=== PATIENT | female | born 1965 | race African-American/Black ===

== ENCOUNTER 2024-04-22 10:25 | Inpatient (IN) | payer OTHER, SELFPAY ==
--- NOTE | ~2024-04-22 | XR_ITS ---
MODIFIED ESOPHAGRAM HISTORY: Impaired swallow TECHNIQUE: Modified barium esophagram was performed on 04/24/2024. I administered fluoroscopy and perf ormed the exam with speech pathologist. Patient was seated for lateral fluoroscopic imaging for lorenzo stion of thin liquids, pudding, solids and quantified amounts, followed by thin liquids in uncontroll ed amounts. This was recorded on tape. A single fluoroscopic spot image was also recorded. The DAP fo r this procedure was 1 Gycm2. The amount of fluoroscopy time used during this procedure was 1.9 minut es. FINDINGS: Oral stage: Adequate function. Pharyngeal stage: Reduced laryngeal elevation and adduction. Reduced pharyngeal squeeze. There is kade lecular, piriform sinus and pharyngeal wall residue. There is irregular posterior wall thickening the pharynx below the level of the epiglottis likely related to reported history of throat cancer. There is recurrent laryngeal penetration and aspiration significant amounts of thin liquid and pudding con sistencies during both during and following the swallow. Cervical/esophageal stage: Adequate function. IMPRESSION: Significant recurrent laryngeal aspiration both during and following the swallow with thi n liquid and pudding consistencies. Please correlate with speech pathologist findings and specific f eeding recommendations. Reviewed, dictated and finalized at location A. NER OPERATOR IMPRESSION: Significant recurrent laryngeal aspiration both during and followin g the swallow with thin liquid and pudding consistencies. Please correlate wit h speech pathologist findings and specific feeding recommendations.
--- NOTE | ~2024-04-22 | CT_ITS ---
EXAMINATION: CT soft tissue neck chest w DATE: 04/24/2024 16:39 INDICATION: Shortness of breath. Neck swelling. TECHNIQUE: Computed tomography (CT) of the neck and chest was performed with 75 mL Omnipaque-350 intr avenous contrast. Automated exposure control and iterative reconstruction technique were employed. Th e dose-length product was 393.02 mGy-cm. COMPARISON: 04/22/2024 FINDINGS: Neck: Prominent soft tissue swelling at the left side of the neck surrounding a loculated gas and fluid col lection which is increased in size since the prior study currently measuring 2.9 x 1.9 x 3.2 cm versu s previously measuring 1.8 x 1.7 x 2.3 cm. There is surrounding subcutaneous edema. There is a mass, difficult to distinguish from the surrounding edematous soft tissues at the left side of the pharynx which exerts mass effect upon the left aryepiglottic fold and the left side of the glottis. There is also thickening of the retropharyngeal soft tissues findings are consistent with reported history of neck cancer. There is also asymmetric wall thickening along the left side of the cervical esophagus a lso suspicious for malignant infiltration. There are multiple enlarged cervical lymph nodes primarily along the bilateral posterior cervical triangles and at the upper left jugular chain. Orbits are nor mal. Paranasal sinuses are clear. Bilateral parotid and submandibular glands are normal and symmetric . Mastoid air cells and middle ear cavities are clear. Severe cervical spondylosis. Chest: Moderate emphysema. Patchy groundglass opacities in the bilateral lower lobes with posterior medial p redominance in the posterior right middle lobe. Or dense consolidation at the posterior medial left l ower lobe. Given the appearance and distribution is most suspicious for aspiration which was also obs erved on a modified swallow study from earlier in the day. There is some bubbly mucus/debris in the r ight lower lobar bronchus as well as in the posterior basilar segmental bronchi of the bilateral lowe r lobes. No pulmonary edema or pleural effusion. No pulmonary nodules suspicious for primary or metas tatic disease. No pathologically enlarged thoracic lymphadenopathy. Poorly defined approximately 2.7 cm hypoenhancing lesion in segment 3 of the liver suspicious for metastatic disease. Previous studies gastrostomy tube bulb in expected position within the body the stomach. Visualized upper abdomen is otherwise unremarkable. Diffuse sclerosis throughout the T12 vertebral body suspicious for metastatic disease. IMPRESSION: 1. Mass at the left side of the pharynx with soft tissue thickening the retropharyngeal soft tissues extending caudally along the left side of the esophagus which be consistent with reported primary nec k cancer. 2. Interval increase in size of a now 2.9 x 1.9 x 3.2 cm gas and fluid containing lesion in the subcu taneous tissues overlying the left side of the pharynx suspicious for secondary abscess formation pot ential with fistulous indication the pharynx. Alternatively this could represent secondarily suppurat nena/necrotic metastatic lymph node. 3. Multiple enlarged bilateral cervical lymph nodes along with a 2.7 cm mass in the left hepatic lobe and sclerotic T12 vertebral body, all suspicious for metastatic disease. 4. Patchy airspace opacities in the dependent lower lobes and right middle lobe suspicious for aspira tion pneumonia. Reviewed, dictated and finalized at location A. UPS ASSEMBLER IMPRESSION: 1. Mass at the left side of the pharynx with soft tissue thickening the retroph aryngeal soft tissues extending caudally along the left side of the esophagus w hich be consistent with reported primary neck cancer. 2. Interval increase in size of a now 2.9 x 1.9 x 3.2 cm gas and fluid containi ng lesion in the subcutaneous tissues overlying the left side of the pharynx garcia spicious for secondary abscess formation potential with fistulous indication th e pharynx. Alternatively this could represent secondarily suppurative/necrotic metastatic lymph node. 3. Multiple enlarged bilateral cervical lymph nodes along with a 2.7 cm mass in the left hepatic lobe and sclerotic T12 vertebral body, all suspicious for met astatic disease. 4. Patchy airspace opacities in the dependent lower lobes and right middle lobe suspicious for aspiration pneumonia.
--- NOTE | ~2024-04-22 | XR_ITS ---
Portable chest x-ray Comparison: None Clinical History: Cough Findings: Lungs are clear, without focal consolidation or pleural effusion. Possible COPD. Cardiome diastinal silhouette is unremarkable. Bones and soft tissues are unremarkable. Impression: Clear lungs. Possible COPD. Reviewed, dictated and finalized at location . E BOARDER Impression: Clear lungs. Possible COPD.
--- NOTE | ~2024-04-22 | CT_ITS ---
CT soft tissue neck w con Ordering provider: Gilberto Contreras MD History: 58 years Female with . Worsening left-sided throat swelling and difficulty swallowing, perso nal history of throat cancer . Comparison: None. Technique: CT soft tissues neck was performed with contrast. . The dose-length product was 210.16 mGy -cm. Findings: LOWER HEAD: The visualized brain parenchyma, optic globes/orbits and mastoids are normal. The visua lized paranasal sinuses are well aerated. SALIVARY GLANDS: Unremarkable. THYROID: Unremarkable. SUPRAHYOID DEEP SPACES: Symmetric CAROTID ARTERIES: Patent JUGULAR VEINS: Patent TONSILS: Unremarkable ORAL CAVITY: Partially obscured by dental amalgam but unremarkable as visualized. PHARYNX, LARYNX AND TRACHEA: Marked asymmetry within the subglottic larynx, with limited evaluation secondary to the lack of soft tissue fat. The administration of intravenous contrast is helpful, as it designates a left-sided rim-enhancing fl uid collection adjacent to the vocal cords measuring 18 x 17 x 19 mm, for which an abscess is suspect ed. Alternatively, this may represent a necrotic lymph node. A punctate focus of air is identified centrally within the caudal-most portion of this fluid collecti on. SUPERFICIAL SOFT TISSUES: As above THORACIC INLET/VISUALIZED UPPER CHEST: Normal. SKELETAL: Age advanced degenerative changes. IMPRESSION: Asymmetry within the subglottic larynx, to the left of midline with a 19 mm rim-enhancing fluid colle ction for which an abscess (versus a necrotic lymph node) is suspected. Reviewed, dictated and finalized at location A. FORGER HELPER IMPRESSION: Asymmetry within the subglottic larynx, to the left of midline with a 19 mm rim -enhancing fluid collection for which an abscess (versus a necrotic lymph node) is suspected.
--- OUTSIDE RECORDS SUMMARY | 2024-04-22 10:27 | XMS_ITS | Clinical Summary ---
Author Organization [facility] Address [address] [place] [address] Phone Care Team Providers Care Logistics/Shipper Name Role Phone Gilles Durant MD Primary Care Provider [phone] Allergies No known active allergies Medications nicotine (NICODERM CQ) 21 mg/24 hr patch Starting 02/14: Apply 1 Patch to skin as directed daily. 30 Patch 02/14/2024 3:40 PM PLANNING AIDE 02/15/20 24 Active sennosides-doc usate sodium (SENNA-S) 8.6-50 mg tablet Take 2 Tablets by mouth 2 times daily. 90 Tablet 02/14/2024 3:40 PM PLANNING AIDE 02/14/20 24 Active mirtazapine (REMERON SolTab) 15 mg Tablet, Rapid Dissolve Take 1 Tablet (15 mg) by mouth daily at bedtime. 30 Tablet 5 03/09/2024 6:21 PM PLANNING AIDE 03/09/19 25 Active oxyCODONE-acet aminophen (PERCOCET) 10-325 mg TabletIndicati ons:Pharyngeal carcinoma, squamous cell (CMS/HCC) Take 1 Tablet by mouth every 6 hours as needed for Pain. Max Daily Amount: 4 Tablets 20 Tablet 04/17/2024 6:02 PM PLANNING AIDE 04/17/19 25 Active oxyCODONE-acet aminophen (PERCOCET) 10-325 mg TabletIndicati ons:Pharyngeal carcinoma, squamous cell (CMS/HCC) Take 1 Tablet by mouth every 4 hours as needed for Pain. Max Daily Amount: 6 Tablets 360 Tablet 03/09/2024 6:21 PM PLANNING AIDE 03/09/19 25 025 Discontinued fentaNYL (DURAGESIC) 25 mcg/hr patchIndicatio ns:Pharyngeal carcinoma, squamous cell (CMS/HCC) Starting 03/12/24: Apply 1 Patch topically to skin as directed every third day. 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 04/16/2024 Neutrophilia 04/16/2024 Normocytic anemia 04/16/2024 Thrombocytosis 04/16/2024 Oral phase dysphagia 04/16/2024 Drug-induced constipation 04/16/2024 Substance use disorder 03/05/2024 MDD (major depressive disord er), recurrent episode, moderate 03/03/2024 Other insomnia 03/03/2024 Pharyngeal carcinoma, squamous cell 03/02/2024 Oropharyngeal dysphagia 02/13/2024 Cancer associated pain 02/13/2024 Physical debility 02/13/2024 Palliative care by specialist 02/13/2024 Advance care planning 02/13/2024 Protein-calorie malnutrition, severe 02/08/2024 Head and neck malignancy 02/07/2024 Continuous dependence on cigarette smoking 02/06 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/2024 Resolved Problems Problem Noted Date Diagnosed Date Resolved Date RSV (acute bronchiolitis due to respiratory syncytial virus) 02/13/2024 03/02/2024 Iron deficiency anemia 02/07/202403/02 Encounters Date Type Department Care Team Description 04/19/2024 Chart Note [facility] Oncology Patient Navigation [address] [place] [address] Kaya Santiago, RN Nurse Navigation (Follow up) 04/17/2024 External Device Data ST[facility] ABSTRACTION Provider, Abstract 04/17/2024 External Device Data [facility] ABSTRACTION Provider, Abstract 04/17/2024 External Device Data [facility] ABSTRACTION Provider, Abstract 04/15/2024 11:49 AM PLANNING AIDE - 04/17/2024 6:18 PM PLANNING AIDE Hospital Encounter [facility] Oncology [address] [place] [address] Yannick Aponte MD Rose, Evan James, DO Pettis, Matthew, MD Burke, Matthew Frederic, MD Habtu, Ariana Judge, Hypopharyngeal mass Discharge Disposition: Home or Self Care 04/15/2024 Travel 04/13/2024 Chart Note [facility] Patient Navigation [address] [place] [address] Kaya Santiago, RN Nurse Navigation (Follow up) 04/10/2024 External Device Data STL ABSTRACTION Provider, Abstract 04/04/2024 Chart Note [facility] Patient Navigation [address] [place] [address] Kaya Santiago, RN Nurse Navigation (Follow up) 04/03/2024 External Device Data [facility] ABSTRACTION Provider, Abstract 04/03/2024 External Device Data [facility] ABSTRACTION Provider, Abstract 04/03/2024 Chart Note [facility] Patient Navigation [address] [place] [address] Kaya Santiago, RN Nurse Navigation (Follow up) 03/28/2024 External Device Data [facility] ABSTRACTION Provider, Abstract 03/28/2024 External Device Data [facility] ABSTRACTION Provider, Abstract 03/27/2024 Chart Note [facility] Patient Navigation [address] [place] [address] Kaya Santiago, RN Nurse Navigation (Follow up) 03/26/2024 Chart Note [facility] Patient Navigation [address] [place] [address] Kaya Santiago, RN 03/26/2024 Telephone [facility] EAR, NOSE AND THROAT [facility] [address] [facility] [address] [place] [address] Kailey Malin, RN Follow Up 03/26/2024 Telephone [facility] [address] [place] [address] DME- supplement order 03/26/2024 Chart Note [facility] Patient Navigation [address] [place] [address] Kaya Santiago, RN Nurse Navigation (Follow up) 03/22/2024 Chart Note [facility] Patient Navigation [address] [place] [address] Kaya Santiago, RN Nurse Navigation (Follow up) 03/21/2024 External Device Data ST[facility] ABSTRACTION Provider, Abstract 03/21/2024 Chart Note [facility] Patient Navigation [address] [place] [address] Kaya Santiago, RN Nurse Navigation (Follow up) 03/20/2024 Chart Note [facility] Oncology Patient Navigation [address] [place] [address] Kaya Santiago, RN Nurse Navigation (Follow up) 03/19/2024 Chart Note [facility] Patient Navigation [address] [place] [address] Kaya Santiago, RN Nurse Navigation (Follow up) 03/16/2024 Chart Note [facility] Patient Navigation [address] [place] [address] Kaya Santiago, RN Nurse Navigation (Follow up) 03/15/2024 Chart Note [facility] Oncology Patient Navigation [address] [place] [address] Kaya Santiago, RN Nurse Navigation (Follow up) 03/14/2024 Chart Note [facility] Oncology Patient Navigation [address] [place] [address] Kaya Santiago, RN Nurse Navigation (Follow up) 03/06/2024 External Device Data [facility] ABSTRACTION Provider, Abstract 03/05/2024 11:41 AM PLANNING AIDE Anesthesia Event [facility] Interventional Radiology S [facility] [address] [place] [address] Adriano Silva MD Malatkar, Rushali, AA-C 03/05/2024 Chart Note [facility] Oncology Patient Navigation [address] [place] [address] Kaya Santiago, RN Nurse Navigation (Follow up) 03/02/2024 3:53 PM PLANNING AIDE - 03/09/2024 6:06 PM PLANNING AIDE Hospital Encounter [facility] Oncology [address] [place] [address] Chastity Novak DO Kroeger, Ryan L, Randy Diallo MD Padgett, Sabrina, MD Pharyngeal carcinoma, squamous cell (CMS/HCC) Discharge Disposition: Home or Self Care 03/02/2024 Travel 02/28/2024 Chart Note [facility] Oncology Patient Navigation [address] [place] [address] Kaya Santiago, RN Nurse Navigation (Follow up) 02/27/2024 Chart Note [facility] Oncology Patient Navigation [address] [place] [address] Kaya Santiago, RN Nurse Navigation (Follow up ) 02/27/2024 Chart Note [facility] Oncology Patient Navigation [address] [place] [address] Kaya Santiago, RN Nurse Navigation 02/24/2024 Telephone [facility], [facility]SE [facility] [place] [address] [address] Kailey Malin, JOSÉ Follow Up; Needs Appointment 02/24/2024 Orders Only [facility] [place] [address] [address] Rhett Rivera MD 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) 02/24/2024 Telephone [facility]SE [facility] [place] [address] [facility] [address] [place] [address] Rhett Rivera MD Care Plan 02/22/2024 Telephone [facility]SE [facility] [place] [address] [facility] [place] [address] [place] [address] Kailey Malin, RN Needs Appointment 02/15/2024 Telephone [facility]AR, [facility]SE [facility] [place] [address] [facility] [place] [address] [place] [address] Kailey Malin, RN Needs Appointment 02/14/2024 External Device Data [facility] ABSTRACTION Provider, Abstract 02/10/2024 1:30 PM PLANNING AIDE Anesthesia Event [facility] Operating Room [address] [place] [address] Mica Oliveira MD Yoder, Benjamin, AA-C 02/10/2024 1:29 PM PLANNING AIDE - 02/10/2024 3:12 PM PLANNING AIDE Surgery [facility] Operating Room [address] [place] [address] Rhett Rivera MD LARYNGOSCOPY MICRO 02/07/2024 10:25 PM PLANNING AIDE - 02/14/2024 7:00 PM PLANNING AIDE Hospital Encounter [facility] Oncology [address] [place] [address] Regina Sullivan MD Weitzel, Laura Jean, MD Yedla, Vanaja, MD Head and neck malignancy (CMS/HCC) Discharge Disposition: Home or Self Care 02/07/2024 Travel from Last 3 Months Social History Tobacco Use Types Packs/Day Years Used Date Smoking Tobacco: Every Day Cigarettes Tobacco Cessation:Ready to Q uit: Not Asked; Counseling Given: Not Answered Alcohol Use Standard Drinks/Week Comments Yes 1 (1 standard drink = 0.6 oz pure alcohol) Pt states drank 1 beer all night 4 days ago, I rarely drink Feeling Safe Answer Date Recorded Are you in a relationship wi th someone who hurts you emotionally and/or physically? No 04/15/2024 Food Insecurity Answer Date Recorded Social/Environmental Concerns No concerns Transportation Needs Answer Date Record ed Social/Environmental Concerns Housing instabilit y 04/15/2024 Housing Stability Answer Date Recorded Social/Environmental Concerns Housing instabilit y 04/15/2024 Utility Needs Answer Date Recorded Social/Environmental Concerns No concerns Comments Unknown Sex and Gender Information Value Date Recorded Sex Assigned at Not on file Legal Sex Female 2:37 PM PLANNING AIDE Gender Identity Not on file Sexual Orientation Not on file Last Filed Vital Signs Vital Sign Reading Time Taken Comments Blood Pressure 100/68 04/17/2024 4:27 AM PLANNING AIDE Pulse 80 04/17/2024 4:27 AM PLANNING AIDE Temperature 36.6 C (97.9 F) 04/17/2024 4:27 AM PLANNING AIDE Respiratory Rate 18 04/16/2024 8:46 PM PLANNING AIDE Oxygen Saturation 99% 04/17/2024 4:30 AM PLANNING AIDE Inhaled Oxygen Concentration - - Weight 41.9 kg (92 lb 4.8 oz) 04/15/2024 5:27 PM PLANNING AIDE Height 170.2 cm (5' 7 ) 04/15/2024 5:27 PM PLANNING AIDE Body Mass Index 14.46 04/15/2024 5:27 PM PLANNING AIDE Plan of Treatment Health Maintenance Due Date Last Done Comments DTAP/TDAP/TD VACCINES (1 - Tdap) 1985 HEPATITIS B VACCINES (1 of 3 - 19+ 3-dose series) 11/05 ZOSTER VACCINE (1 of 2) 1985 CERVICAL CANCER SCREENING 1996 BREAST CANCER SCREENING 2006 COLORECTAL SCREENING 11/18/2011 Colorectal Cancer Screening 11/18/2011 FIT-DNA Q 3 years 11/18/2011 FIT/FOBT Q 1 year 11/18/2011 Flex Sig/CT Colonography Q 5 years 11/18/2011 INFLUENZA VACCINE (#1) 2023 Procedures Procedure Name Priority Date/Time Associated Diagnosis Comments XR VIDEO SWALLOW W SPEECH Routine 04/17/2024 2:52 PM PLANNING AIDE BASIC METABOLIC PANEL Routine 04/17/2024 3:27 AM PLANNING AIDE XR CHEST PA OR AP 1 VW Routine 1:45 PM PLANNING AIDE BASIC METABOLIC PANEL Routine 04/16/2024 5:53 AM PLANNING AIDE CBC WITH DIFFERENTIAL Routine 04/16/2024 5:53 AM PLANNING AIDE RAPID STREP SCREEN WITH REFLEX CULTURE Stat 04/15/2024 2:[address] SOFT TISSUE NECK W CONTRAST Stat 04/15/2024 1:42 PM PLANNING AIDE RESPIRATORY PATHOGEN PCR PANEL Stat 04/15/2024 12:24 PM PLANNING AIDE POC CREATININE Stat 04/15/2024 12:19 PM PLANNING AIDE IRON, TIBC, AND PERCENT SATURATION Stat 04/15/2024 12:07 PM PLANNING AIDE MAGNESIUM LEVEL Stat 04/15/2024 12:07 PM PLANNING AIDE C-REACTIVE PROTEIN Stat 04/15/2024 12 :07 PM PLANNING AIDE COMPREHENSIVE METABOLIC PANEL Stat 04/15/2024 12:07 PM PLANNING AIDE CBC WITH DIFFERENTIAL Stat 04/15/2024 12:07 PM PLANNING AIDE COMPREHENSIVE METABOLIC PANEL Stat 03/09/2024 9:50 AM PLANNING AIDE Oropharyngeal dysphagia PHOSPHORUS Routine 03/09/2024 9:50 AM PLANNING AIDE Oropharyngeal dysphagia MAGNESIUM LEVEL Routine 03/09/2024 9:50 AM PLANNING AIDE Oropharyngeal dysphagia PHOSPHORUS Routine 03/08/2024 4:54 AM PLANNING AIDE Oropharyngeal dysphagia MAGNESIUM LEVEL Routine 03/08/2024 4:54 AM PLANNING AIDE Oropharyngeal dysphagia COMPREHENSIVE METABOLIC PANEL Routine 03/08/2024 4:54 AM PLANNING AIDE Oropharyngeal dysphagia MAGNESIUM LEVEL Routine 03/07/2024 7:21 AM PLANNING AIDE Oropharyngeal dysphagia COMPREHENSIVE METABOLIC PANEL Routine 03/07/2024 7:21 AM PLANNING AIDE Oropharyngeal dysphagia PHOSPHORUS Routine 03/07/2024 7:21 AM PLANNING AIDE Oropharyngeal dysphagia MAGNESIUM LEVEL Routine 03/06/2024 6:50 AM PLANNING AIDE Oropharyngeal dysphagia COMPREHENSIVE METABOLIC PANEL Routine 03/06/2024 6:50 AM PLANNING AIDE Oropharyngeal dysphagia PHOSPHORUS Routine 03/06/2024 6:50 AM PLANNING AIDE Oropharyngeal dysphagia IR TUBE PLACEMENT Routine 03/05/2024 12: 36 PM PLANNING AIDE W[place] ANES INSERT ENDOTRACHEAL AIRWAY Routine 03/05/2024 11:52 AM PLANNING AIDE PHOSPHORUS Routine 03/05/2024 5:54 AM PLANNING AIDE Oropharyngeal dysphagia Hypopharyngeal mass Protein-calorie malnutrition, severe Continuous dependence on cigarette smoking Head and neck malignancy (CMS/HCC) CBC WITHOUT DIFFERENTIAL Routine 03/05/2024 5:54 AM PLANNING AIDE MAGNESIUM LEVEL Routine 03/05/2024 5:54 AM PLANNING AIDE BASIC METABOLIC PANEL Routine 03/05/2024 5:54 AM PLANNING AIDE CBC WITHOUT DIFFERENTIAL Routine 03/04/2024 6:59 AM PLANNING AIDE MAGNESIUM LEVEL Routine 03/04/2024 6:59 AM PLANNING AIDE BASIC METABOLIC PANEL Routine 03/04/2024 6:59 AM PLANNING AIDE PHOSPHORUS Routine 03/03/2024 4:25 AM PLANNING AIDE MAGNESIUM LEVEL Routine 03/03/2024 4:25 AM PLANNING AIDE COMPREHENSIVE METABOLIC PANEL Routine 03/03/2024 4:25 AM PLANNING AIDE CBC WITH DIFFERENTIAL Routine 03/03/2024 4:25 AM PLANNING AIDE PT EVAL AND TREAT Routine 03/02/2024 4:3 8 PM PLANNING AIDE OT EVAL AND TREAT Routine 03/02/2024 4:3 8 PM PLANNING AIDE BASIC METABOLIC PANEL Routine 02/14/2024 12:51 PM PLANNING AIDE CBC WITH DIFFERENTIAL Routine 02/14/2024 12:51 PM PLANNING AIDE POC GLUCOSE Routine 02/14/2024 12:50 PM PLANNING AIDE POC GLUCOSE Routine 02/14/2024 9:22 AM PLANNING AIDE POC GLUCOSE Routine 02/14/2024 4:15 AM PLANNING AIDE POC GLUCOSE Routine 02/14/2024 12:11 AM PLANNING AIDE POC GLUCOSE Routine 02/13/2024 8:28 PM PLANNING AIDE POC GLUCOSE Routine 02/13/2024 5:27 PM PLANNING AIDE POC GLUCOSE Routine 02/13/2024 12:09 PM PLANNING AIDE XR VIDEO SWALLOW W SPEECH Routine 02/13/2024 12:02 PM PLANNING AIDE POC GLUCOSE Routine 02/13/2024 8:49 AM PLANNING AIDE BASIC METABOLIC PANEL Routine 02/13/2024 4:08 AM PLANNING AIDE CBC WITH DIFFERENTIAL Routine 02/13/2024 4:08 AM PLANNING AIDE POC GLUCOSE Routine 02/12/2024 9:17 PM PLANNING AIDE POC GLUCOSE Routine 02/12/2024 4:53 PM PLANNING AIDE POC GLUCOSE Routine 02/12/2024 12:15 PM PLANNING AIDE POC GLUCOSE Routine 02/12/2024 12:14 PM PLANNING AIDE POC GLUCOSE Routine 02/12/2024 3:33 AM PLANNING AIDE POC GLUCOSE Routine 02/12/2024 2:37 AM PLANNING AIDE POC GLUCOSE Routine 02/12/2024 2:09 AM PLANNING AIDE POC GLUCOSE Routine 02/12/2024 1:40 AM PLANNING AIDE POC GLUCOSE Routine 02/12/2024 1:09 AM PLANNING AIDE POC GLUCOSE Routine 02/12/2024 12:46 AM PLANNING AIDE POC GLUCOSE Routine 02/12/2024 12:43 AM PLANNING AIDE POC GLUCOSE Routine 02/11/2024 8:04 PM PLANNING AIDE POC GLUCOSE Routine 02/11/2024 3:59 PM PLANNING AIDE POC GLUCOSE Routine 02/11/2024 11:31 AM PLANNING AIDE POC GLUCOSE Routine 02/11/2024 10:14 AM PLANNING AIDE POC GLUCOSE Routine 02/11/2024 5:17 AM PLANNING AIDE BASIC METABOLIC PANEL Routine 02/11/2024 2:30 AM PLANNING AIDE CBC WITH DIFFERENTIAL Routine 02/11/2024 2:30 AM PLANNING AIDE POC GLUCOSE Routine 02/11/2024 12:10 AM PLANNING AIDE POC GLUCOSE Routine 02/10/2024 8:15 PM PLANNING AIDE OT EVAL AND TREAT Routine 02/10/2024 4:3 4 PM PLANNING AIDE PT EVAL AND TREAT Routine 02/10/2024 4:3 4 PM PLANNING AIDE POC GLUCOSE Routine 02/10/2024 3:52 PM PLANNING AIDE PATHOLOGY Pathology 02/10/2024 1:54 PM PLANNING AIDE Hypopharyngeal mass WY ANES INSERT ENDOTRACHEAL AIRWAY Routine 02/10/2024 1:39 PM PLANNING AIDE LARYNGOSCOPY MICRO 02/10/2024 1: 29 PM PLANNING AIDE Hypopharyngeal mass POC GLUCOSE Routine 02/10/2024 9:59 AM PLANNING AIDE PHOSPHORUS Routine 02/10/2024 4:18 AM PLANNING AIDE MAGNESIUM LEVEL Routine 02/10/2024 4:18 AM PLANNING AIDE COMPREHENSIVE METABOLIC PANEL Routine 02/10/2024 4:18 AM PLANNING AIDE CBC WITH DIFFERENTIAL Routine 02/10/2024 4:18 AM PLANNING AIDE POC GLUCOSE Routine 02/10/2024 1:[address] ABDOMEN WO CONTRAST Routine 11:29 PM PLANNING AIDE CBC WITH DIFFERENTIAL Stat 02/09/2024 8:50 PM PLANNING AIDE POC GLUCOSE Routine 02/09/2024 6:46 PM PLANNING AIDE PHOSPHORUS Stat 02/09/2024 4:33 PM PLANNING AIDE MAGNESIUM LEVEL Stat 02/09/2024 4:33 PM PLANNING AIDE COMPREHENSIVE METABOLIC PANEL Stat 02/09/2024 4:33 PM PLANNING AIDE URINALYSIS W/REFLEX MICROSCOPIC Routine 02/08/2024 10:07 PM PLANNING AIDE CTA HEAD AND NECK W AND/OR WO CONTRAST Stat 02/08/2024 4:[address] CHEST W CONTRAST Stat 02/08/2024 4 :53 PM PLANNING AIDE XR ABDOMEN FOR FEEDING TUBE 1 VW Stat 02/08/2024 2:24 PM PLANNING AIDE RESPIRATORY PATHOGEN PCR PANEL Routine 02/08/2024 12:01 PM PLANNING AIDE CEA Routine 02/08/2024 1:49 AM PLANNING AIDE COMPREHENSIVE METABOLIC PANEL Routine 02/08/2024 1:49 AM PLANNING AIDE MAGNESIUM LEVEL Routine 02/08/2024 1:49 AM PLANNING AIDE CBC WITH DIFFERENTIAL Routine 02/08/2024 1:49 AM PLANNING AIDE from Last 3 Months Results * XR VIDEO SWALLOW W SPEECH (04/17/2024 2:52 PM PLANNING AIDE) Only the most recent of2 resultswithin the time period is included. Anatomical Region Laterality Modality Chest Computed Radiogr aphy 04/17/2024 2:54 PM PLANNING AIDE Impressions 04/17/2024 2:57 PM PLANNING AIDE TECHNIQUE/IMPRESSION: Fluoroscopy was provided for an examination performed by speech and language pathology. Please see their separate report for further characterization of findings. Aspiration and penetration with all ingested liquids and solids. DICTATION LOCATION: Location 1 - [facility] Narrative 04/17/2024 2:57 PM PLANNING AIDE EXAMINATION: MODIFIED BARIUM SWALLOW DATE: 04/17/2024 2:52 PM HISTORY: Aspiration, Difficulty Swallowing COMPARISON: None Fluoroscopy time: 2.2 minutes. REFERENCE AIR KERMA DOSE: 5.257 mGy INCIDENTAL FINDINGS: None. Procedure Note Pancho Welch MD - 04/17/2024 EXAMINATION: MODIFIED BARIUM SWALLOW DATE: 04/17/2024 2:52 PM HISTORY: Aspiration, Difficulty Swallowing COMPARISON: None Fluoroscopy time: 2.2 minutes. REFERENCE AIR KERMA DOSE: 5.257 mGy INCIDENTAL FINDINGS: None. TECHNIQUE/IMPRESSION: Fluoroscopy was provided for an examination performed by speech and language pathology. Please see their separate report for further characterization of findings. Aspiration and penetration with all ingested liquids and solids. DICTATION LOCATION: Location 1 - [facility] Adriano Jaime MD DIAGNOSTIC IMAGING ORD ERABLES Final Result * (ABNORMAL) BASIC METABOLIC PANEL (04/17/2024 3:27 AM PLANNING AIDE) Only the most recent of7 resultswithin the time period is included. SODIUM 139 136 - 145 mmol/L 04/17/2024 4:31 AM PLANNING AIDE [employer] LABORATORY SERVICES - . [facility] POTASSIUM 3.9 3.5 - 5.0 mmol/L 04/17/2024 4:31 AM PLANNING AIDE [employer] LABORATORY SERVICES - [facility] CHLORIDE 103 98 - 107 mmol/L 04/17/2024 4:31 AM PLANNING AIDE [employer] LABORATORY SERVICES - [facility]. [facility] CO2 26 22 - 29 mmol/L 04/17/2024 4:31 AM PLANNING AIDE [employer] LABORATORY SERVICES - . [facility] CALCIUM 8.9 8.6 - 10.2 mg/dL 04/17/2024 4:31 AM PLANNING AIDE [employer] LABORATORY SERVICES - . [place] BUN 21(H) 6 - 20 mg/dL 04/17/2024 4:31 AM [facility] CREATININE 0.51 0.51 - 0.95 mg/dL 04/17/2024 4:31 AM [facility] GLUCOSE 125(H) 74 - 99 mg/dL 04/17/2024 4:31 AM [facility] GFR >60 >=60 mL/min/1.7 3 sq meter 04/17/2024 4:31 AM [facility] Comment:eGFR calculated with 2020 CKD-EPI equation. Vegetarian diet, extremely high or low muscle mass, and may affect results. Cystatin C with Glomerular Filtration Rate is a suitable alternative for these patients. ANION GAP 10 8 - 16 mmol/L 04/17/2024 4:31 AM [facility] Blood Venipuncture / Unknown 04/17/2024 3:27 AM PLANNING AIDE 04/17/2024 3:48 AM PLANNING AIDE [employer] COMPENSATION AND BENEFITS ANALYST CHEMISTRY ORDERABLES Final Resu lt [facility] CLIA# [id number] [address] [place] [address] * XR CHEST PA OR AP 1 VW (04/16/2024 1:45 PM PLANNING AIDE) Anatomical Region Laterality Modality Chest Computed Radiogr aphy 04/16/2024 1:45 PM PLANNING AIDE Impressions 04/17/2024 12:14 PM PLANNING AIDE IMPRESSION: No acute cardiopulmonary process is identified. DICTATION LOCATION: Location 2 - [facility] Narrative 04/17/2024 12:14 PM PLANNING AIDE EXAM: XR CHEST PA OR AP 1 VW DATE: 04/16/2024 1:45 PM HISTORY: Congestion COMPARISON: 02/05/2024 FINDINGS: An AP view of the chest was submitted for evaluation. The cardiac silhouette is within normal limits. There is no evidence for an infiltrate, pleural effusion, or pneumothorax. There are degenerative changes of the shoulders. Procedure Note Sidra Romero MD - 04/17/2024 EXAM: XR CHEST PA OR AP 1 VW DATE: 04/16/2024 1:45 PM HISTORY: Congestion COMPARISON: 02/05/2024 FINDINGS: An AP view of the chest was submitted for evaluation. The cardiac silhouette is within normal limits. There is no evidence for an infiltrate, pleural effusion, or pneumothorax. There are degenerative changes of the shoulders. IMPRESSION: No acute cardiopulmonary process is identified. DICTATION LOCATION: Location [address] [place] [address] Adriano Jaime MD DIAGNOSTIC IMAGING ORD ERABLES Final Result * (ABNORMAL) CBC WITH DIFFERENTIAL (04/16/2024 5:53 AM PLANNING AIDE) Only the most recent of9 resultswithin the time period is included. WBC 10.4(H) 4.0 - 9.8 K/uL 04/16/2024 7:26 AM [employer] LABORATORY SERVICES [facility] RBC 4.34 3.90 - 4.90 M/uL 04/16/2024 7:26 AM PLANNING AIDE [employer] LABORATORY SERVICES [facility] HEMOGLOBIN 10.6(L) 11.8 - 14.8 g/dL 04/16/2024 7:26 AM [employer] LABORATORY SERVICES [facility] HEMATOCRIT 35.1(L) 35.5 - 44.0 % 04/16/2024 7:26 AM PLANNING AIDE [employer] LABORATORY SERVICES [facility] MCV 80.9(L) 82.0 - 99.0 fL 04/16/2024 7:26 AM [employer] LABORATORY SERVICES [facility] MCH 24.4(L) 27.2 - 32.6 pg 04/16/2024 7:26 AM PLANNING AIDE [employer] LABORATORY SERVICES [facility] MCHC 30.2(L) 31.5 - 35.5 g/dL 04/16/2024 7:26 AM [employer] LABORATORY SERVICES [facility] RDW 17.7(H) 11.5 - 14.5 % 04/16/2024 7:26 AM PLANNING AIDE [employer] LABORATORY SERVICES [facility] RDW-STDEV 52.4(H) 37.1 - 48.7 fL 04/16/2024 7:26 AM PLANNING AIDE [employer] LABORATORY SERVICES [facility] PLATELETS 429(H) 140 - 350 K/uL 04/16/2024 7:[address] [facility] [employer] [facility] MPV 10.4 9.3 - 12.4 fL 04/16/2024 7:[address] [facility] [employer] [facility] NEUTROPHILS 83 % 04/16/2024 7:26 AM [facility] [employer] [facility] LYMPHOCYTES 10 % 04/16/2024 7:[address] [facility] [employer] [employer] [facility]. RUPAL MONOCYTES 7 % 04/16/2024 7:26 AM [facility] [employer] [facility]. RUPAL EOSINOPHILS 0 % 04/16/2024 7:26 AM [facility] [employer] [facility] BASOPHILS 0 % 04/16/2024 7:[address] [facility] [employer] [facility] IMMATURE GRANULOCYTES 1 % 04/16/2024 7:[address] [facility] [employer] [facility] Comment:IG (Immature Granulo cyte) count includes Metamyelocytes, Myelocytes, and Promyelocytes NEUTROPHIL ABSOLUTE 8.57(H) 1.90 - 7.00 K/uL 04/16/2024 7:26 AM [facility] [employer] [facility] LYMPHOCYTE ABSOLUTE 0.99 0.70 - 4.50 K/uL 04/16/2024 7:26 AM [facility] [employer] [facility] MONOCYTE ABSOLUTE 0.73 0.10 - 1.30 K/uL 04/16/2024 7:26 AM [facility] [employer] [facility] EOSINOPHIL ABSOLUTE 0.01 0.00 - 0.70 K/uL 04/16/2024 7:[address] [facility] [employer] [facility] BASOPHILS ABSOLUTE 0.02 0.00 - 0.20 K/uL 04/16/2024 7:[address] [facility] [employer] [facility] IMMATURE GRANULOCYTES ABSOLUTE 0.05(H) 0.00 - 0.03 K/uL 04/16/2024 7:26 AM [facility] Blood Venipuncture / Unknown 04/16/2024 5:53 AM PLANNING AIDE 04/16/2024 7:[address] [facility] [employer] COMPENSATION AND BENEFITS ANALYST HEMATOLOGY ORDERABLES Final Res ult [facility] [id number] [address] [place] [address] * RAPID STREP SCREEN WITH REFLEX CULTURE (04/15/2024 2:08 PM PLANNING AIDE) Pathologist [facility] RAPID STREP Not Detected Not Detected 04/15/2024 3:46 PM PLANNING AIDE [facility] Comment:This Group A Strep t est is a rapid PCR test for the qualitative detection of Group A Streptococcus from throat swab specimens. This test does not need confirmatory cultures for negative Strep A results, given the high sensitivity of molecular assays. However, pharyngitis may be caused by other bacterial organisms including beta-hemolytic Streptococci Group C or G, Arcanobacterium hemolyticum, Corynebacterium diphtheriae, or Fusobacterium necrophorum, for which specific culture methods are required. Additional follow-up testing by culture is required if testing is negative and clinical symptoms persist. Upper Respiratory SPECIMEN FROM THROAT / Unknown Collection / Unknown 04/15/2024 2:08 PM PLANNING AIDE 04/15/2024 2:10 PM PLANNING AIDE Yannick Aponte MD MICROBIOLOGY - GENERA L ORDERABLES Final Result [facility]# [id number] [address] [place] [address] * CT SOFT TISSUE NECK W CONTRAST (04/15/2024 1:42 PM PLANNING AIDE) Anatomical Region Laterality Modality Neck Computed Tomogra phy 04/15/2024 1:43 PM PLANNING AIDE Impressions 04/15/2024 1:58 PM PLANNING AIDE IMPRESSION: 1. Progressed hypopharyngeal/cervical esophageal mass representing a primary head and neck malignancy and progressed metastatic cervical lymphadenopathy as described above. DICTATION LOCATION: Location 1 - [facility] Narrative 04/15/2024 1:58 PM PLANNING AIDE EXAMINATION: CT SOFT TISSUE NECK W CONTRAST HISTORY: neck swelling pain, diagnosed malignancy. See Reason for Exam TECHNIQUE: CT of the neck was performed following the uneventful administration of 80 mL Isovue-300 intravenous contrast according to standard protocol. The examination was performed with the adjustment of mA according to the patient size and/or the use of Iterative Reconstruction Technique. FINDINGS: Comparison is made with a study from February 08, 2024. There is progressed level two and three lymphadenopathy bilaterally measuring up to 18 mm in short axis on the right, previously 14 mm, and unchanged metastatic level 6/7 lymphadenopathy centrally measuring up to 11 mm in short axis. A ulcerated enhancing mass diffusely involving the hypopharynx and cervical esophagus measures approximately 11.6 cm CC by 6.4 cm TV by 3.4 cm AP and shows increased extension laterally along the external margin of the left thyroid cartilage. There is endolaryngeal extension along the periglottic fat, left greater than right. There is mild narrowing of the laryngeal vestibule. A subcentimeter nodule in the left lobe of the thyroid gland is unchanged and does not require further follow-up based on size. The visualized portions of the posterior fossa and brain appear normal. There is cervical degenerative disc and joint disease. The visible portions of the orbits, paranasal sinuses, and mastoids appear normal. There is emphysema in the lung apices. Procedure Note Yolette Zapata MD - 04/15/2024 EXAMINATION: CT SOFT TISSUE NECK W CONTRAST HISTORY: neck swelling pain, diagnosed malignancy. See Reason for Exam TECHNIQUE: CT of the neck was performed following the uneventful administration of 80 mL Isovue-300 intravenous contrast according to standard protocol. The examination was performed with the adjustment of mA according to the patient size and/or the use of Iterative Reconstruction Technique. FINDINGS: Comparison is made with a study from February 08, 2024. There is progressed level two and three lymphadenopathy bilaterally measuring up to 18 mm in short axis on the right, previously 14 mm, and unchanged metastatic level 6/7 lymphadenopathy centrally measuring up to 11 mm in short axis. A ulcerated enhancing mass diffusely involving the hypopharynx and cervical esophagus measures approximately 11.6 cm CC by 6.4 cm TV by 3.4 cm AP and shows increased extension laterally along the external margin of the left thyroid cartilage. There is endolaryngeal extension along the periglottic fat, left greater than right. There is mild narrowing of the laryngeal vestibule. A subcentimeter nodule in the left lobe of the thyroid gland is unchanged and does not require further follow-up based on size. The visualized portions of the posterior fossa and brain appear normal. There is cervical degenerative disc and joint disease. The visible portions of the orbits, paranasal sinuses, and mastoids appear normal. There is emphysema in the lung apices. IMPRESSION: 1. Progressed hypopharyngeal/cervical esophageal mass representing a primary head and neck malignancy and progressed metastatic cervical lymphadenopathy as described above. DICTATION LOCATION: Location 1 - [facility] Yannick Aponte MD CT ORDERABLES Final Result * RESPIRATORY PATHOGEN PCR PANEL (04/15/2024 12:24 PM PLANNING AIDE) Only the most recent of2 resultswithin the time period is included. Respiratory Pathogen PCR Panel NOT DETECTED No respiratory pathogen nucleic acids detected. 04/15/2024 1:51 PM PLANNING AIDE [facility] COVID-19 PCR NOT DETECTED Not Detected 04/15/2024 1:51 PM PLANNING AIDE [facility] Upper Respiratory ENTIRE NASOPHARYNX / Unknown Collection / Unknown 04/15/2024 12:24 PM PLANNING AIDE 04/15/2024 12:38 PM PLANNING AIDE Narrative [facility] - 04/15/2024 1:51 PM PLANNING AIDE The Film Array Respiratory Panel (RP2.1) is a multiplex nucleic acid detection test for 22 targets. Viruses: Adenovirus Coronavirus HKU1, NL63, 229E, and OC43 COVID-19/Severe Acute Respiratory Syndrome Coronavirus 2 Influenza A with the following subtypes: H1, H1-2009, and H3 Influenza B Human Metapneumovirus Parainfluenza virus 1, 2, 3, and 4 Respiratory Syncytial virus (RSV) Rhinovirus/Enterovirus (cannot differentiate due to genetic similarities) Bacteria: Bordetella pertussis Bordetella parapertussis Chlamydophila pneumoniae Mycoplasma pneumoniae Yannick Aponte MD MICROBIOLOGY - GENERA L ORDERABLES Final Result [facility]# [id number] [address] [facility] [address] [place] [id number] * POC CREATININE (04/15/2024 12:19 PM PLANNING AIDE) CREATININE POC 0.50 0.50 - 1.00 mg/dL 04/15/2024 12:19 PM [facility] GFR POC >60 >=60 mL/min/1.7 3 sq meter 04/15/2024 12:19 PM [facility] Comment:eGFR calculated with 2020 CKD-EPI equation. Vegetarian diet, extremely high or low muscle mass, and may affect results. Cystatin C with Glomerular Filtration Rate is a suitable alternative for these patients. Blood, whole 04/15/2024 12:1 9 PM PLANNING AIDE 04/15/2024 12:20 PM PLANNING AIDE Yannick Aponte MD POINT OF CARE TESTING Final Result Performing Organization Address City/[facility]/ZIP Co de Phone Number [facility] [employer] [facility] [id number] [address] [place] [address] * (ABNORMAL) IRON, TIBC, AND PERCENT SATURATION (04/15/2024 12:07 PM PLANNING AIDE) IRON 19(L) 37 - 145 ug/dL 04/15/2024 3:21 PM [facility] TIBC 237(L) 250 - 450 ug/dL 04/15/2024 3:21 PM [facility] IRON % SATURATION 8(L) 15 - 50 % 04/15/2024 3:21 PM [facility] [employer] [facility] TRANSFERRIN 187(L) 200 - 360 mg/dL 04/15/2024 3:21 PM [facility] Blood Venipuncture / Unknown 04/15/2024 12:07 PM PLANNING AIDE 04/15/2024 12:15 PM PLANNING AIDE Kvng Johnson NP CHEMISTRY ORDERABLES Final Resu lt [facility] [employer] [facility] CLIA# [id number] [address] [place] [address] * (ABNORMAL) C-REACTIVE PROTEIN (04/15/2024 12:07 PM PLANNING AIDE) Pathologist [facility] CRP 56.8(H) <5.0 mg/L 04/15/2024 1:04 PM PLANNING AIDE [facility] Blood Venipuncture / Unknown 04/15/2024 12:07 PM PLANNING AIDE 04/15/2024 12:15 PM PLANNING AIDE Yannick Aponte MD CHEMISTRY ORDERABLES Final Result Performing Organization Address City/[facility]/ZIP Co de Phone Number [facility] [employer] [facility]# [id number] [address] [place] [address] * MAGNESIUM LEVEL (04/15/2024 12:07 PM PLANNING AIDE) Only the most recent of11 resultswithin the time period is included. Pathologist [facility] MAGNESIUM 2.2 1.6 - 2.6 mg/dL 04/15/2024 1:07 PM [facility] Blood Venipuncture / Unknown 04/15/2024 12:07 PM PLANNING AIDE 04/15/2024 12:15 PM PLANNING AIDE Yannick Aponte MD CHEMISTRY ORDERABLES Final Result [facility]# [id number] [address] [place] [address] * (ABNORMAL) COMPREHENSIVE METABOLIC PANEL (04/15/2024 12:07 PM PLANNING AIDE) Only the most recent of9 resultswithin the time period is included. Pathologist [facility] SODIUM 139 136 - 145 mmol/L 04/15/2024 1:07 PM [facility] POTASSIUM 4.8 3.5 - 5.0 mmol/L 04/15/2024 1:07 PM PLANNING AIDE [facility] Comment:Moderate hemolysis p resent. Can cause significant falsely elevated result. Redraw if indicated. CHLORIDE 103 98 - 107 mmol/L 04/15/2024 1:07 PM [facility] CO2 26 22 - 29 mmol/L 04/15/2024 1:07 PM [facility] CALCIUM 9.6 8.6 - 10.2 mg/dL 04/15/2024 1:07 PM [facility] BUN 13 6 - 20 mg/dL 04/15/2024 1:07 PM [facility] CREATININE 0.47(L) 0.51 - 0.95 mg/dL 04/15/2024 1:07 PM [facility] [employer] [facility] GLUCOSE 140(H) 74 - 99 mg/dL 04/15/2024 1:07 PM [facility] TOTAL PROTEIN 7.8 6.7 - 8.6 g/dL 04/15/2024 1:07 PM [facility] [employer] [facility] ALBUMIN 3.5 3.5 - 5.2 g/dL 04/15/2024 1:07 PM [facility] [employer] [facility] BILIRUBIN TOTAL 0.3 0.3 - 1.2 mg/dL 04/15/2024 1:07 PM [facility] ALKALINE PHOSPHATASE 112(H) 35 - 104 U/L 04/15/2024 1:07 PM [facility] [employer] [facility] AST 04/15/2024 1:07 PM [facility] [employer] [facility] Comment:Test cannot be perfo rmed. Sample hemolysis interference above limits. Redraw if indicated. ALT 15 <34 U/L 04/15/2024 1:07 PM [facility] Comment:Hemolysis present. R esult may be falsely elevated. GFR >60 >=60 mL/min/1. 73 sq meter 04/15/2024 1:07 PM [facility] [employer] [facility] Comment:eGFR calculated with 2020 CKD-EPI equation. Vegetarian diet, extremely high or low muscle mass, and may affect results. Cystatin C with Glomerular Filtration Rate is a suitable alternative for these patients. ANION GAP 10 8 - 16 mmol/L 04/15/2024 1:07 PM PLANNING AIDE [facility] Blood Venipuncture / Unknown 04/15/2024 12:07 PM PLANNING AIDE 04/15/2024 12:15 PM PLANNING AIDE Narrative [facility] - 04/15/2024 1:07 PM PLANNING AIDE Samples containing indocyanine green cause interferences on Total and/or Direct Bilirubin and must not be measured. Yannick Aponte MD CHEMISTRY ORDERABLES Final Result Performing Organization Address [facility]/ZIP Co de Phone Number [facility]# [id number] [address] [place] [address] * PHOSPHORUS (03/09/2024 9:50 AM PLANNING AIDE) Only the most recent of8 resultswithin the time period is included. PHOSPHORUS 3.7 2.5 - 4.5 mg/dL 03/09/2024 11:07 AM PLANNING AIDE [facility] Blood Venipuncture / Unknown 03/09/2024 9:50 AM PLANNING AIDE 03/09/2024 10:09 AM PLANNING AIDE Lakisha Dang MD CHEMISTRY ORDERABLES Final Re sult Performing Organization Address [facility]/ZIP Co de Phone Number [facility]# [id number] [address] [place] [address] * IR TUBE PLACEMENT (03/05/2024 12:36 PM PLANNING AIDE) Anatomical Region Laterality Modality X-Ray Angiograph y 03/05/2024 12:3 6 PM PLANNING AIDE Impressions 03/05/2024 12:58 PM PLANNING AIDE IMPRESSION: Technically successful placement of a 16 Fr Entuit percutaneous gastrostomy catheter as detailed above. DICTATION LOCATION: Location 1 - [facility] Narrative 03/05/2024 12:58 PM PLANNING AIDE PERCUTANEOUS GASTROSTOMY TUBE UNDER FLUOROSCOPIC GUIDANCE TIME/DATE: 03/05/2024 12:36 PM. CLINICAL INFORMATION & INDICATION: Female of 58 years age Gastrostomy Tube.Oropharyngeal dysphagia; Hypopharyngeal mass; Protein-calorie malnutrition, severe; Continuous dependence on cigarette smoking; Head and neck malignancy IR: Antonio Cristina M.D. CONSENT: The indications, procedures, benefits, and risks (including but not limited to peritonitis and significant bleeding) were discussed with the patient. Informed consent was obtained for the medical record. SEDATION: Provided by the anesthesia department as detailed in the medical record. PROCEDURE IN DETAIL: The patient was identified by standard protocol and a timeout was performed at the beginning of the procedure. Maximum sterile technique was utilized for all aspects of the procedure. The stomach was insufflated with air through indwelling gastric tube. T-fastener needle was advanced into the stomach under fluoroscopic guidance with intraluminal positioning confirmed by contrast injection. The stomach was pexied to the abdominal wall using fasteners. The stomach was accessed with a 19-gauge needle and contrast again injected to confirm appropriate positioning. A 0.035 guidewire was looped in the stomach. Following serial dilation, the new percutaneous gastrostomy tube was advanced into the stomach. Contrast was injected confirming appropriate positioning. Retention balloon was inflated and balloon/button pulled in apposition to the stomach wall. A sterile dressing was applied. The patient tolerated the procedure well. MEDICATIONS/DRUGS: None FLUOROSCOPIC TIME: 1.9 min SKIN DOSE: 4.4 mGy ESTIMATED BLOOD LOSS: 5 mL COMPLICATIONS: None FINDINGS: Post gastrostomy placement fluoroscopic images demonstrate new tube appropriately positioned within the stomach. Procedure Note Sanchez Cristina MD - 03/05/2024 PERCUTANEOUS GASTROSTOMY TUBE UNDER FLUOROSCOPIC GUIDANCE TIME/DATE: 03/05/2024 12:36 PM. CLINICAL INFORMATION & INDICATION: Female of 58 years age Gastrostomy Tube.Oropharyngeal dysphagia; Hypopharyngeal mass; Protein-calorie malnutrition, severe; Continuous dependence on cigarette smoking; Head and neck malignancy IR: Antonio Cristina M.D. CONSENT: The indications, procedures, benefits, and risks (including but not limited to peritonitis and significant bleeding) were discussed with the patient. Informed consent was obtained for the medical record. SEDATION: Provided by the anesthesia department as detailed in the medical record. PROCEDURE IN DETAIL: The patient was identified by standard protocol and a timeout was performed at the beginning of the procedure. Maximum sterile technique was utilized for all aspects of the procedure. The stomach was insufflated with air through indwelling gastric tube. T-fastener needle was advanced into the stomach under fluoroscopic guidance with intraluminal positioning confirmed by contrast injection. The stomach was pexied to the abdominal wall using fasteners. The stomach was accessed with a 19-gauge needle and contrast again injected to confirm appropriate positioning. A 0.035 guidewire was looped in the stomach. Following serial dilation, the new percutaneous gastrostomy tube was advanced into the stomach. Contrast was injected confirming appropriate positioning. Retention balloon was inflated and balloon/button pulled in apposition to the stomach wall. A sterile dressing was applied. The patient tolerated the procedure well. MEDICATIONS/DRUGS: None FLUOROSCOPIC TIME: 1.9 min SKIN DOSE: 4.4 mGy ESTIMATED BLOOD LOSS: 5 mL COMPLICATIONS: None FINDINGS: Post gastrostomy placement fluoroscopic images demonstrate new tube appropriately positioned within the stomach. IMPRESSION: Technically successful placement of a 16 Fr Entuit percutaneous gastrostomy catheter as detailed above. DICTATION LOCATION: Location 1 [facility] Randy Torres MD IR ORDERABLES Final Result * [place] ANES INSERT ENDOTRACHEAL AIRWAY (03/05/2024 11:52 AM PLANNING AIDE) Narrative Osmin Kim AA-C - 03/05/2024 11:52 AM PLANNING AIDE Osmin Kim AA-C 03/05/2024 12:13 PM Airway Date/Time: 03/05/2024 11:52 AM Location: OR Plan: routine intubation Patient Identity Confirmed by: Verbally with patient and armband Staffing Performed: PRIMER BOXER/CAA Authorized by: Adriano Silva MD Performed by: Osmin Kim AA-C Indications and Patient Condition: Indications for Airway Management: Anesthesia Sedation Level: general anesthesia Preoxygenated: yes Patient Position: Sniffing Mask Difficulty Assessment: 0 - not attempted Plan to extubate at end of case: Yes Final Airway Details: Final Airway Type: Endotracheal airway ETT Cuffed: Yes Cuff Volume (mL): 6 Technique Used for Successful ETT Placement: Video laryngoscopy Devices/Methods Used in Placement: Cricoid pressure, intubating stylet and rapid sequence intubations/RSI Reason for advanced technique: pre-op assessment Blade Size: 3 Insertion Site: Oral ETT Size (mm): 7.0 Video Laryngoscopy Devices: GlideScope Measured from: Teeth ETT to Teeth (cm): 22 Tube secured with: Tape Placement Verified by: auscultation, end tidal CO2 and chest rise Cormack-Lehane Classification: Grade IIa - partial view of glottis Number of Attempts at Approach: 1 Additional Procedure Information: atraumatic and dentition unchanged Additional Comments: Multiple small masses seen in the posterior oropharynx. Glidescope strongly recommended us Adriano Silva MD PROCEDURE/MINOR SURGICAL LA COY Final Result * (ABNORMAL) CBC WITHOUT DIFFERENTIAL (03/05/2024 5:54 AM PLANNING AIDE) Only the most recent of2 resultswithin the time period is included. WBC 7.6 4.0 - 9.8 K/uL 03/05/2024 6:40 AM [employer] LABORATORY SERVICES [facility] RBC 4.27 3.90 - 4.90 M/uL 03/05/2024 6:40 AM PLANNING AIDE [employer] LABORATORY SERVICES [facility] HEMOGLOBIN 11.0(L) 11.8 - 14.8 g/dL 03/05/2024 6:40 AM PLANNING AIDE [employer] LABORATORY SERVICES [facility] HEMATOCRIT 34.8(L) 35.5 - 44.0 % 03/05/2024 6:40 AM PLANNING AIDE [employer] LABORATORY SERVICES [facility] MCV 81.5(L) 82.0 - 99.0 fL 03/05/2024 6:40 AM [employer] LABORATORY SERVICES [facility] MCH 25.8(L) 27.2 - 32.6 pg 03/05/2024 6:40 AM PLANNING AIDE [employer] LABORATORY SERVICES [facility] MCHC 31.6 31.5 - 35.5 g/dL 03/05/2024 6:40 AM PLANNING AIDE [employer] SERVICES [facility] PLATELETS 447(H) 140 - 350 K/uL 03/05/2024 6:40 AM PLANNING AIDE [employer] LABORATORY SERVICES [facility] MPV 9.8 9.3 - 12.4 fL 03/05/2024 6:40 AM [employer] SERVICES [facility] RDW 17.8(H) 11.5 - 14.5 % 03/05/2024 6:40 AM PLANNING AIDE [facility] RDW-STDEV 53.3(H) 37.1 - 48.7 fL 03/05/2024 6:40 AM PLANNING AIDE [facility] Blood Venipuncture / Unknown 03/05/2024 5:54 AM PLANNING AIDE 03/05/2024 6:18 AM PLANNING AIDE Randy Torres MD HEMATOLOGY ORDERABLES Final Resu lt [facility] CLIA# [id number] [address] [place] [address] * (ABNORMAL) POC GLUCOSE (02/14/2024 12:50 PM PLANNING AIDE) Only the most recent of30 resultswithin the time period is included. GLUCOSE POC 101(H) 74 - 99 mg/dL 02/14/2024 12:50 PM PLANNING AIDE [facility] SPECIMEN SOURCE, GLUCOSE POC Whole Blood 02/14/2024 12:50 PM PLANNING AIDE [facility] LABORATORY [facility] COMMENT, GLU POC Notified RN/MD 02/14/2024 12:50 PM PLANNING AIDE [facility] Blood, whole 02/14/2024 12:5 0 PM PLANNING AIDE 02/14/2024 12:58 PM PLANNING AIDE Frank Joe MD POINT OF CARE TESTING Final Resu lt [facility] CLIA# [id number] [address] [place] [address] * PATHOLOGY (02/10/2024 1:54 PM PLANNING AIDE) CASE REPORT Surgical Pathology Report Case: [id number] Authorizing Provider: Rhett Rivera MD Collected: 02/10/2024 01:54 PM Ordering Location: [facility] Received: 02/10/2024 02:45 PM Operating Room Pathologist: Wilmar Burnett MD Specimens: A) - Nasopharynx, Throat - LEFT POSTERIOR HYPOPHARYNX B) - Nasopharynx, Throat - LEFT POSTERIOR HYPOPHARYNX 4 9:14 AM [facility] FINAL DIAGNOSIS A. Pharynx, left posterior hypopharynx, biopsy (FS1) - Squamous cell carcinoma, moderately differentiated, keratinizing type B. Pharynx, left posterior hypopharynx, biopsy - Squamous cell carcinoma, moderately differentiated, keratinizing type 4 9:14 AM [facility] S DESCRIPTION Two containers are received labeled Dara Carrion D Kenyatta . Received in the first container additionally labeled left posterior hypopharynx for frozen section are 3 fragments of red-yousif tissue ranging from 0.5 to 0.7 cm in greatest dimension. The specimen is entirely frozen as FS 1. The frozen section remnant is submitted in cassette A1. Received in the second container additionally labeled left posterior hypopharynx is a 2 x 1.8 x 0.4 cm aggregate of multiple irregular fragments of pink-yousif tissue. The specimen is submitted entirely labeled B1. KA 4 9:14 AM [facility] MICROSCOPIC DESCRIPTION The slides are labeled [id number] and Dara You. Examination of permanent sections confirm the intraoperative frozen section diagnosis. 4 9:14 AM [facility] INTRAOPERATIVE CONSULTATION FS1-left posterior hypopharynx-squamous cell carcinoma. The diagnosis was given to Trish in [place] [address] Pancho Spangler. 4 9:14 AM [facility] OPERATIVE PROCEDURE 1: LARYNGOSCOPY MICRO 4 9:14 AM [facility] CLINICAL INFORMATION hyopharynx mass J39.2-Hypopharyngeal mass 4 9:14 AM [facility] COMMENT Special stain, immunohistochemical, and/or in situ hybridization results are interpreted with controls that demonstrate appropriate staining reactions. Note on use of immunohistochemistry reagents and in situ hybridization probes: These tests were developed and their performance characteristics determined by [facility], Department of Laboratory Medicine. It has not been cleared or approved by the U.S. Food and Drug Administration. The FDA has determined that such clearance or approval is not necessary. The test is used for clinical purposes. It should not be regarded as investigational or for research. This laboratory is certified to perform high complexity testing. Frozen section/operating room consultation, gross examination and dissection, and case sign out may have been performed in part or completely in the following laboratories: [facility], CLIA #[id number] [address] [place] [address] [facility], [place] #[id number] [address] [place] [address] [facility], CLIA #[id number] [address] [place] [address] This report was created with the [employer] voice-activated dictation system. Inherent to this system is the possibility of syntax, grammar, punctuation and other errors that could impact the interpretation of the report. If there are interpretative questions about aspects of this report, please contact the performing pathologist. 9:14 AM PLANNING AIDE [facility] Tissue ENTIRE NASOPHARYNX / Unknown Collection / Unknown 02/10/2024 1:54 PM PLANNING AIDE 02/10/2024 2:45 PM PLANNING AIDE Tissue specimen (specimen) ENTIRE NASOPHARYNX / Unknown 02/10/2024 1:59 PM PLANNING AIDE 02/10/2024 2:45 PM PLANNING AIDE us Rhett Rivera MD PATHOLOGY/CYTOLOGY ORDERABLES Fi nal Result [id number] [address] [place] [address] * [place] ANES INSERT ENDOTRACHEAL AIRWAY (02/10/2024 1:39 PM PLANNING AIDE) Narrative Eze Carmona AA-C - 02/10/2024 1:39 PM PLANNING AIDE Eze Carmona AA-C 02/10/2024 1:50 PM Airway Date/Time: 02/10/2024 1:39 PM Location: OR Plan: routine intubation Patient Identity Confirmed by: Verbally with patient and armband Airway: not difficult Staffing Performed: PRIMER BOXER/CAA Authorized by: Mica Oliveira MD Performed by: zEe Carmona AA-C Indications and Patient Condition: Indications for Airway Management: Anesthesia Sedation Level: general anesthesia Preoxygenated: yes Patient Position: Sniffing Mask Difficulty Assessment: 1 - vent by mask Plan to extubate at end of case: Yes Final Airway Details: Final Airway Type: Endotracheal airway ETT Cuffed: Yes Technique Used for Successful ETT Placement: Direct laryngoscopy Devices/Methods Used in Placement: LTA and cricoid pressure Blade Type: straight blade Blade Size: 2 Insertion Site: Oral ETT Size (mm): 6.0 Measured from: Teeth Tube secured with: Tape Placement Verified by: auscultation, end tidal CO2 and chest rise Cormack-Lehane Classification: Grade I - full view of glottis Number of Attempts at Approach: 1 Additional Procedure Information: atraumatic and dentition unchanged Additional Comments: PreO2 - mask vent confirmed - no stylet - CP to improve view and alignment - LTA atomized - uneventful - altered anatomical view d/t HP mass - mouth unchanged. Mica Oliveira MD PROCEDURE/MINOR SURGICAL ORDERAB LES Final Result * CT ABDOMEN WO CONTRAST (02/09/2024 11:29 PM PLANNING AIDE) Anatomical Region Laterality Modality Abdomen Computed Tomogra phy 02/09/2024 11:1 8 PM PLANNING AIDE Impressions 02/10/2024 9:14 AM PLANNING AIDE IMPRESSION: 1. Normal gastric anatomy. 2. Diffuse sclerosis of T12. The differential includes metastasis. This could be better evaluated with thoracic MRI or bone scan. DICTATION LOCATION: 1 Narrative 02/10/2024 9:14 AM PLANNING AIDE EXAMINATION: CT OF THE ABDOMEN WITHOUT CONTRAST DATE: 02/09/2024 11:29 PM HISTORY: Anatomy scan for PEG TECHNIQUE: Transaxial computed tomographic images of the abdomen were obtained without intravenous contrast. The examination was performed with the adjustment of mA according to the patient size and/or the use of Iterative Reconstruction Technique. DLP: 179.83 mGy-cm FINDINGS: Comparison is made to a chest CT from 02/08/2024. Lung bases: There are is mild emphysema in the right lung base. Liver: Normal Gallbladder: Cholelithiasis Pancreas: Normal Spleen: Normal Adrenal glands: Normal Kidneys: Normal Stomach: Normal Small bowel: The visualized small bowel is normal. Colon: There is stool throughout the visualized colon. Bones: There is diffuse sclerosis of T12. There are degenerative changes at L5-S1. Procedure Note Jim Sullivan MD - 02/10/2024 EXAMINATION: CT OF THE ABDOMEN WITHOUT CONTRAST DATE: 02/09/2024 11:29 PM HISTORY: Anatomy scan for PEG TECHNIQUE: Transaxial computed tomographic images of the abdomen were obtained without intravenous contrast. The examination was performed with the adjustment of mA according to the patient size and/or the use of Iterative Reconstruction Technique. DLP: 179.83 mGy-cm FINDINGS: Comparison is made to a chest CT from 02/08/2024. Lung bases: There are is mild emphysema in the right lung base. Liver: Normal Gallbladder: Cholelithiasis Pancreas: Normal Spleen: Normal Adrenal glands: Normal Kidneys: Normal Stomach: Normal Small bowel: The visualized small bowel is normal. Colon: There is stool throughout the visualized colon. Bones: There is diffuse sclerosis of T12. There are degenerative changes at L5-S1. IMPRESSION: 1. Normal gastric anatomy. 2. Diffuse sclerosis of T12. The differential includes metastasis. This could be better evaluated with thoracic MRI or bone scan. DICTATION LOCATION: [address] ORDERABLES Final Resul t * (ABNORMAL) URINALYSIS WITH REFLEX MICROSCOPIC (02/08/2024 10:07 PM PLANNING AIDE) COLOR UA Yellow Pale to Dark Yellow 02/08/2024 10:36 PM PLANNING AIDE [employer] [facility] CLARITY UA Clear Clear 02/08/2024 10:36 PM PLANNING AIDE [employer] LABORATORY SERVICES [facility] SPECIFIC GRAVITY UA 1.015 1.003 - 1.035 02/08/2024 10:36 PM PLANNING AIDE [employer] LABORATORY [facility] PH UA 6.0 5.0 - 8.0 02/08/2024 10:36 PM [facility] LEUKOCYTE ESTERASE UA Negative Negative 02/08/2024 10:36 PM [facility] NITRITE UA Negative Negative 02/08/2024 10:36 PM [facility] PROTEIN UA Trace(A) Negative 02/08/2024 10:36 PM [facility] GLUCOSE UA Negative Negative 02/08/2024 10:36 PM [facility] KETONES UA 1+(A) Negative 02/08/2024 10:36 PM [facility] UROBILINOGEN UA 2.0(A) <2.0 mg/dL 10:36 PM [facility] BILIRUBIN UA Negative Negative 02/08/2024 10:36 PM [facility] BLOOD UA Trace(A) Negative 02/08/2024 10:36 PM [facility] Urine URINE SPECIMEN OBTAINED BY CLEAN CATCH PROCEDURE / Unknown Collection / Unknown 02/08/2024 10:07 PM PLANNING AIDE 02/08/2024 10:17 PM PLANNING AIDE Melodie Araujo COMPENSATION AND BENEFITS ANALYST URINE ORDERABLES Final R esult [facility]# [id number] [address] [place] [address] * CTA HEAD AND NECK W AND/OR WO CONTRAST (02/08/2024 4:54 PM PLANNING AIDE) Anatomical Region Laterality Modality Head Computed Tomogra phy 02/08/2024 4:49 PM PLANNING AIDE Impressions 02/08/2024 5:14 PM PLANNING AIDE IMPRESSION: 1. No acute intracranial hemorrhage. 2. No large arterial occlusions or significant stenoses identified in the head or neck. 3. 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 This could be further stage by PET/CT, if needed. DICTATION LOCATION: Location 1 - [facility] Narrative 02/08/2024 5:14 PM PLANNING AIDE EXAMINATION: CTA HEAD AND NECK W AND/OR WO CONTRAST HISTORY: esophageal mass. See Reason for Exam TECHNIQUE: CT of the head was performed without contrast according to standard protocol. Then CT angiography of the head and neck was obtained after the uneventful administration of 130 mL Isovue 300 intravenous contrast. RAPID LVO detection software was utilized. The images were reconstructed in Maximum Intensity Projection (MIP) using coronal and sagittal projections by the technologist and sent to the workstation for review. The examination was performed with the adjustment of mA according to the patient size and/or the use of Iterative Reconstruction Technique. FINDINGS: No prior study is available for comparison at the time of this dictation. Non-angiographic findings: No acute intra- or extra-axial fluid collections are identified. The ventricles are of normal size, shape, and morphology. The basilar cisterns are patent. No mass effect or midline shift is seen. The burdick-white matter differentiation is normal. There is vascular calcification of the carotid siphons. Other than an old left lamina preparation fracture, the visible portions of the orbits, paranasal sinuses, and mastoids appear normal. No acute fracture is identified. A nasogastric tube is partially imaged. There is an enhancing mass diffusely involving the hypopharynx and cervical esophagus. There is metastatic level two lymphadenopathy bilaterally, measuring up to 14 mm in size. Angiographic findings: The visible aortic arch appears normal. There is a common origin of the innominate and left common carotid arteries from the aortic arch. The innominate artery and both subclavian arteries appear normal. The right common and internal carotid arteries as well as the right carotid bifurcation appear normal. There is atherosclerotic disease of the left carotid bifurcation and origin of the left internal carotid artery with less than 50 percent focal stenosis by [place] Stroke and Carotid Endarterectomy Trial (NASCET) criteria. The left common and internal carotid arteries otherwise appear normal. The cervical vertebral arteries appear normal. There is atherosclerotic disease involving the distal internal carotid arteries without significant focal stenosis. The anterior and middle cerebral arteries appear normal. The distal vertebral arteries appear normal. The basilar artery and posterior cerebral arteries appear normal. No aneurysms, vascular occlusions, or intracranial stenoses are identified. Procedure Note Yolette Zapata MD - 02/08/2024 EXAMINATION: CTA HEAD AND NECK W AND/OR WO CONTRAST HISTORY: esophageal mass. See Reason for Exam TECHNIQUE: CT of the head was performed without contrast according to standard protocol. Then CT angiography of the head and neck was obtained after the uneventful administration of 130 mL Isovue 300 intravenous contrast. RAPID LVO detection software was utilized. The images were reconstructed in Maximum Intensity Projection (MIP) using coronal and sagittal projections by the technologist and sent to the workstation for review. The examination was performed with the adjustment of mA according to the patient size and/or the use of Iterative Reconstruction Technique. FINDINGS: No prior study is available for comparison at the time of this dictation. Non-angiographic findings: No acute intra- or extra-axial fluid collections are identified. The ventricles are of normal size, shape, and morphology. The basilar cisterns are patent. No mass effect or midline shift is seen. The burdick-white matter differentiation is normal. There is vascular calcification of the carotid siphons. Other than an old left lamina preparation fracture, the visible portions of the orbits, paranasal sinuses, and mastoids appear normal. No acute fracture is identified. A nasogastric tube is partially imaged. There is an enhancing mass diffusely involving the hypopharynx and cervical esophagus. There is metastatic level two lymphadenopathy bilaterally, measuring up to 14 mm in size. Angiographic findings: The visible aortic arch appears normal. There is a common origin of the innominate and left common carotid arteries from the aortic arch. The innominate artery and both subclavian arteries appear normal. The right common and internal carotid arteries as well as the right carotid bifurcation appear normal. There is atherosclerotic disease of the left carotid bifurcation and origin of the left internal carotid artery with less than 50 percent focal stenosis by [place] Stroke and Carotid Endarterectomy Trial (NASCET) criteria. The left common and internal carotid arteries otherwise appear normal. The cervical vertebral arteries appear normal. There is atherosclerotic disease involving the distal internal carotid arteries without significant focal stenosis. The anterior and middle cerebral arteries appear normal. The distal vertebral arteries appear normal. The basilar artery and posterior cerebral arteries appear normal. No aneurysms, vascular occlusions, or intracranial stenoses are identified. IMPRESSION: 1. No acute intracranial hemorrhage. 2. No large arterial occlusions or significant stenoses identified in the head or neck. 3. 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 This could be further stage by PET/CT, if needed. DICTATION LOCATION: Location 1 - [facility] Razia Humphreys CREATIVE DESIGNER CT ORDERABLES Final Resul t * CT CHEST W CONTRAST (02/08/2024 4:53 PM PLANNING AIDE) Anatomical Region Laterality Modality Chest Computed Tomogra phy 02/08/2024 4:52 PM PLANNING AIDE Impressions 02/08/2024 6:02 PM PLANNING AIDE IMPRESSION: Mild superior mediastinal lymphadenopathy. Soft tissue mass within the lower neck. Please see CTA head and neck performed in conjunction with this exam for details of the lower neck. Proximal esophageal wall thickening. This can be seen with esophagitis and/or underlying mass. 1.7 cm groundglass nodule within the right lower lobe. Although this may represent focal infiltrate, developing pulmonary nodule is a consideration. Close follow-up is recommended. Heterogeneous enhancement of the left kidney. This may be related to phase of injection. Pyelonephritis can also have this appearance. Correlation with laboratory values is recommended. DICTATION LOCATION: Location 4 Narrative 02/08/2024 6:[address] OF THE CHEST WITH INTRAVENOUS CONTRAST DATE: 02/08/2024 4:53 PM HISTORY: Staging for suspected malignancy. See Reason for Exam COMPARISON: None. PROCEDURE: Spiral volumetric acquisition of the chest was performed with intravenous contrast. Sagittal and coronal reconstructions were performed. The examination was performed with the adjustment of mA according to the patient size and/or the use of Iterative Reconstruction Technique. CONTRAST: IOPAMIDOL 61 % INTRAVENOUS SOLUTION (MULTI-DOSE BULK PACK) Given:130 mL FINDINGS: HEART/VESSELS: The heart is at the upper limits of normal in size. A small pericardial effusion is noted. The thoracic aorta is normal in caliber without dissection. Severe coronary artery calcification is seen. MEDIASTINUM AND TAWNYA: Mildly enlarged right paratracheal lymph node just posterior to the left brachiocephalic vein. Additional nonenlarged peritracheal lymph nodes are noted. No hilar or axillary adenopathy is seen. Please see CTA of the head and neck performed in conjunction with this exam for findings of the lower neck. An enteric tube is noted within the esophagus. Esophageal wall thickening is noted within the proximal esophagus. CHEST WALL AND LOWER NECK: The thyroid gland is unremarkable in appearance. LUNGS/AIRWAYS/PLEURA: Mild to moderate centrilobular emphysema. A 1.7 x 1.4 cm groundglass nodule within the right lower lobe. Mild groundglass opacity within the lateral posterior right middle lobe. No focal consolidation. Mild diffuse bronchial wall thickening. Scattered areas of mucous plugging within the lower lobes bilaterally. No pleural effusions or pneumothorax. The central airway is patent. UPPER ABDOMEN: An enteric tube is noted within the esophagus extending into the stomach. A 5 mm nonobstructing left superior pole renal calculus. Heterogeneous enhancement of the left kidney. This may be related to phase of injection. Pyelonephritis can also have this appearance. Correlation with laboratory values is suggested. BONES: No suspicious focal osseous lesions. Procedure Note Heather Denton MD - 02/08/2024 CT OF THE CHEST WITH INTRAVENOUS CONTRAST DATE: 02/08/2024 4:53 PM HISTORY: Staging for suspected malignancy. See Reason for Exam COMPARISON: None. PROCEDURE: Spiral volumetric acquisition of the chest was performed with intravenous contrast. Sagittal and coronal reconstructions were performed. The examination was performed with the adjustment of mA according to the patient size and/or the use of Iterative Reconstruction Technique. CONTRAST: IOPAMIDOL 61 % INTRAVENOUS SOLUTION (MULTI-DOSE BULK PACK) Given:130 mL FINDINGS: HEART/VESSELS: The heart is at the upper limits of normal in size. A small pericardial effusion is noted. The thoracic aorta is normal in caliber without dissection. Severe coronary artery calcification is seen. MEDIASTINUM AND TAWNYA: Mildly enlarged right paratracheal lymph node just posterior to the left brachiocephalic vein. Additional nonenlarged peritracheal lymph nodes are noted. No hilar or axillary adenopathy is seen. Please see CTA of the head and neck performed in conjunction with this exam for findings of the lower neck. An enteric tube is noted within the esophagus. Esophageal wall thickening is noted within the proximal esophagus. CHEST WALL AND LOWER NECK: The thyroid gland is unremarkable in appearance. LUNGS/AIRWAYS/PLEURA: Mild to moderate centrilobular emphysema. A 1.7 x 1.4 cm groundglass nodule within the right lower lobe. Mild groundglass opacity within the lateral posterior right middle lobe. No focal consolidation. Mild diffuse bronchial wall thickening. Scattered areas of mucous plugging within the lower lobes bilaterally. No pleural effusions or pneumothorax. The central airway is patent. UPPER ABDOMEN: An enteric tube is noted within the esophagus extending into the stomach. A 5 mm nonobstructing left superior pole renal calculus. Heterogeneous enhancement of the left kidney. This may be related to phase of injection. Pyelonephritis can also have this appearance. Correlation with laboratory values is suggested. BONES: No suspicious focal osseous lesions. IMPRESSION: Mild superior mediastinal lymphadenopathy. Soft tissue mass within the lower neck. Please see CTA head and neck performed in conjunction with this exam for details of the lower neck. Proximal esophageal wall thickening. This can be seen with esophagitis and/or underlying mass. 1.7 cm groundglass nodule within the right lower lobe. Although this may represent focal infiltrate, developing pulmonary nodule is a consideration. Close follow-up is recommended. Heterogeneous enhancement of the left kidney. This may be related to phase of injection. Pyelonephritis can also have this appearance. Correlation with laboratory values is recommended. DICTATION LOCATION: Location [address] ORDERABLES Final Resul t * XR ABDOMEN FOR FEEDING TUBE 1 VW (02/08/2024 2:24 PM PLANNING AIDE) Anatomical Region Laterality Modality Abdomen Computed Radiogr aphy 02/08/2024 2:25 PM PLANNING AIDE Impressions 02/08/2024 2:29 PM PLANNING AIDE IMPRESSION: 1. Enteric feeding tube terminates in the body of the stomach. DICTATION LOCATION: [address] 02/08/2024 2:29 PM PLANNING AIDE EXAMINATION: XR ABDOMEN FOR FEEDING TUBE 1 VW HISTORY: Check Tube Placement COMPARISON: No prior imaging is available for comparison. FINDINGS: The enteric feeding tube terminates in the body of the stomach. The visible bowel gas pattern is nonobstructive. INCIDENTAL FINDINGS: None. Procedure Note Nigel Gay MD - 02/08/2024 EXAMINATION: XR ABDOMEN FOR FEEDING TUBE 1 VW HISTORY: Check Tube Placement COMPARISON: No prior imaging is available for comparison. FINDINGS: The enteric feeding tube terminates in the body of the stomach. The visible bowel gas pattern is nonobstructive. INCIDENTAL FINDINGS: None. IMPRESSION: 1. Enteric feeding tube terminates in the body of the stomach. DICTATION LOCATION: Location 9 - [facility] Razia Humphreys CREATIVE DESIGNER DIAGNOSTIC IMAGING ORDERABL ES Final Result * CEA (02/08/2024 1:49 AM PLANNING AIDE) CEA <1.8 <3.9 ng/mL 02/08/2024 8:26 AM PLANNING AIDE [facility] Blood Venipuncture / Unknown 02/08/2024 1:49 AM PLANNING AIDE 02/08/2024 2:05 AM PLANNING AIDE Narrative [facility] - 02/08/2024 8:26 AM PLANNING AIDE Reference Range: Non-smoker: </= 3.8 ng/mL Smoker: < 5.5 ng/mL The concentration of CEA in a given specimen, as determined by assays from different manufacturers, can vary because of differences in assay methods and reagent specificity. Values obtained with different assay methods cannot be used interchangeably. The testing method in use is the ODIN Electrochemiluminescence immunoassay. Results cannot be interpreted as absolute evidence of the presence or absence of malignancy. Values should be interpreted with caution during . Melodie Araujo NP CHEMISTRY ORDERABLES Fin al Result [facility] CLIA# [id number] [address] [place] [address] from Last 3 Months Insurance RX [facility] [employer] (INTERNAL) [facility] [employer] RX [facility] [employer] [place] Advance Directives For more information, please contact: [phone] * Full Code (Latest Code Status on File) Date Activated Date Inactivated Comments 04/15/2024 2:48 PM 04/17/2024 8:18 PM * Full Code Date Activated Date Inactivated Comments 03/02/2024 4:38 PM 03/09/2024 8:11 PM * Full Code Date Activated Date Inactivated Comments 02/07/2024 11:58 PM 02/14/2024 10:04 PM Care Teams Logistics/Shipper Relationship Specialty Start Date End Date Gilles Durant MD [address] [facility] [address] [place] [address] PCP - General Internal Medicine 02/08/24
--- OUTSIDE RECORDS SUMMARY | 2024-04-22 10:27 | XMS_ITS ---
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 Past Treatment and Therapy Plans No past plan information found. Lifetime Dose Tracking * Chemical Lifetime Dose Automatic Entry Manual Entr y Effective Dose 22.7 mSv 22.7 mSv 0 mSv Total DLP 3,750.85 DLP 3,750.85 DLP 0 DLP CTDIvol Max 82.23 mGy 82.23 mGy 0 mGy Resolved Problems Problem Noted Date Diagnosed Date Resolved Date RSV (acute bronchiolitis due to respiratory syncytial virus) 02/13/2024 03/02/2024 Iron deficiency anemia 02/07/202403/02
[2024-04-22 10:29] VITALS: BP 111/77; PULSE 101; RESP 20; TEMP 36.4; O2SAT 98
--- NOTE | 2024-04-22 11:34 | ED_ITS ---
HPI - General Adult General Chief complaint: Recheck/Abnormal Lab/Rx Stated complaint: throat cancer mass brigger Time Seen by Provider: 04/22/24 11:24 History of Present Illness HPI narrative: 58-year-old female presenting to the emergency department for evaluation for worsening throat pain. Patient states back in February she was diagnosed with throat cancer. Patient was recently discharged from [facility] and encouraged to have close follow-up with Dr. Oliver. Patient was unable to call follow-up with oncology. Patient states since being discharged that she has had worsening left-sided throat swelling and difficulty swallowing. Patient also reports eye pressure and pain in her ears. Patient denies any difficulty breathing. Related Data Allergies Allergy/AdvReac Type Severity Reaction Status Date / Time No Known Allergies Allergy Verified 04/22/24 10:35 Review of Systems 2 Review of Systems: All systems reviewed & are unremarkable except as noted in HPI and below Exam 2 Narrative: APPEARANCE: Well appearing, no pain, no distress, well-nourished. HEAD: normocephalic, atraumatic. EYES: PERRLA/EOMI, conjunctivae clear. NOSE: Normal no drainage EARS:TMS clear with good light reflex. THROAT: Left-sided neck mass NECK: Supple. No adenopathy, no masses. RESPIRATORY: Airway patent, respirations nonlabored. Clear to auscultation bilaterally, no rales, rhonchi, wheezing. CARDIOVASCULAR: Regular rate and rhythm without murmurs rubs or gallops. ABDOMINAL: Soft, nontender, nondistended, normal bowel sounds MUSCULOSKELETAL: Moves all extremities. Strength/ROM intact, No edema, No calf tenderness. NEURO: Alert. Cranial nerves II through XII intact. Good gait. Good coordination SKIN: Warm, dry. Normal Color Course Vital Signs Vital signs: Vital Signs Temperature 97.6 F 04/22/24 10:29 Pulse Rate 101 H 04/22/24 10:29 Respiratory Rate 20 04/22/24 10:29 Blood Pressure 111/77 04/22/24 10:29 Pulse Oximetry 98 04/22/24 10:29 Oxygen Delivery Room Air 04/22/24 10:29 Temperature 97.6 F 04/22/24 10:29 Pulse Rate 101 H 04/22/24 10:29 Respiratory Rate 20 04/22/24 10:29 Blood Pressure 111/77 04/22/24 10:29 Pulse Oximetry 98 04/22/24 10:29 Oxygen Delivery Room Air 04/22/24 10:29 Medical Decision Making MDM Narrative Medical decision making narrative: 58-year-old female present to the emergency department for evaluation for increased generalized weakness and throat pain along with decreased p.o. intake. Patient does have a feeding tube and place but states that she does also sometimes to eat. Patient was unable to provide a significant history regarding her recent cancer diagnosis. I did discuss the case with [facility] where she was just recently discharged. [facility] confirm that there was no significant worsening of the swelling on the left lateral neck and this does appear to be chronically worsening. They stated that they had attempted to get her set up with Oncology and Radiation Oncology but patient had not yet made the phone calls for this to occur as outpatient. I discussed the CT findings with our ENT Dr. Diaz prior to no the patient's history and he recommended that the patient be transferred. When I discussed the case with [facility] they stated they were not going to do surgery and palliative radiation and chemo being recommended. I did discuss the case with Dr Oliver he was comfortable with plan for antibiotics and fluids and he will see the patient Tuesday as consult. I discussed case with hospitalist patient was admitted. Emergency did state that the patient was also recommended to have an outpatient PET scan Differential Diagnosis Differential Diagnosis: Abscess, throat cancer, dehydration, decreased p.o. intake, failure to thrive Vital Signs Vital Signs: Vital Signs Temperature 97.6 F 04/22/24 10:29 Pulse Rate 101 H 04/22/24 10:29 Respiratory Rate 20 04/22/24 10:29 Blood Pressure 111/77 04/22/24 10:29 Pulse Oximetry 98 04/22/24 10:29 Oxygen Delivery Room Air 04/22/24 10:29 Temperature 97.6 F 04/22/24 10:29 Pulse Rate 101 H 04/22/24 10:29 Respiratory Rate 20 04/22/24 10:29 Blood Pressure 111/77 04/22/24 10:29 Pulse Oximetry 98 04/22/24 10:29 Oxygen Delivery Room Air 04/22/24 10:29 Lab Data Lab results reviewed: Yes I reviewed the patient's lab results. 04/22/24 12:05 04/22/24 12:05 Labs: Lab Results 04/22/24 04/22/24 04/22/24 Range/Units 11:47 12:05 12:28 WBC 11.3 H (4.5-10.0) K/mm3 RBC 4.12 L (4.2-5.4) M/mm3 Hgb 9.8 L (12.0-15.0) g/dL Hct 32.0 L (37.0-47.0) % MCV 77.7 L (80-100) fl MCH 23.8 L (26-34) pg MCHC 30.6 L (32-36) g/dl RDW 17.3 H (11.5-14.5) % Plt Count 507 H (150-375) k/mm3 MPV 9.1 (7.4-10.4) fl Immature Gran % (Auto) 0.5 (0-0.5) % Neut % (Auto) 81.4 H (45.5-73.1) % Lymph % (Auto) 10.5 L (18.3-44.2) % Graves % (Auto) 7.3 (2.6-8.5) % Eos % (Auto) 0.0 (0-4.4) % Baso % (Auto) 0.3 (0.2-1.2) % Lymph # (Auto) 1.19 (0.9-3.2) K/mm3 Graves # (Auto) 0.8 H (0.1-0.6) K/mm3 Eos # (Auto) 0.0 (0-0.3) K/mm3 Baso # (Auto) 0.0 (0.0-0.1) K/mm3 Abs Immat Gran (auto) 0.06 H (0.00-0.031) K/mm3 Absolute Neuts (auto) 9.2 H (1.3-6.7) K/mm3 Absolute Nucleated RBC 0.000 (0.0-0.012) K/mm3 Nucleated RBC % 0.0 (0.0-0.2) % PT 14.4 (11.1-14.7) Seconds INR 1.1 APTT 27.8 (22.3-36.8) Seconds Sodium 139 (137-145) mmol/L Potassium 3.7 (3.4-5.0) mmol/L Chloride 100 (98-107) mmol/L Carbon Dioxide 29 (22-30) mmol/L Anion Gap 10 (4-12) mmol/L BUN 14 (7-17) mg/dL Creatinine 0.43 L (0.7-1.0) mg/dL Estim Creat Clear Calc 78 ml/min Estimated GFR > 60 (59 - ) Glucose 96 (65-110) mg/dL POC Capillary Glucose 89 (65-105) mg/dl Lactic Acid 1.0 (0.7-2.0) mmol/L Calcium 9.8 (8.4-10.2) mg/dL Total Bilirubin 0.4 (0.2-1.3) mg/dL AST 25 (14-36) U/L ALT 23 (6-35) U/L Alkaline Phosphatase 120 (38-126) U/L Total Protein 8.0 (6.3-8.2) g/dL Albumin 3.6 (3.5-5.1) g/dL Influenza A (RT-PCR) Negative (Negative) Influenza B (RT-PCR) Negative (Negative) RSV (RT-PCR) Negative (Negative) SARS-CoV-2 RNA (RT-PCR) Negative (Negative) Imaging Data Radiologist's impression: Impressions Soft Tissue Neck CT 04/22/24 12:46 IMPRESSION: Asymmetry within the subglottic larynx, to the left of midline with a 19 mm rim- enhancing fluid collection for which an abscess (versus a necrotic lymph node) is suspected. Critical Care Time Critical Care Time Critical Care Time: Yes Total Critical Care Time: 35 Discharge Plan Discharge Clinical Impression: Adult failure to thrive, Primary squamous cell carcinoma of throat Patient Disposition: Still a Patient Condition: Stable
--- OUTSIDE RECORDS SUMMARY | 2024-04-22 11:39 | XMS_ITS ---
Author Organization [facility] Address [address] [place] [address] Phone Care Team Providers Care [employer] Name Role Phone Gilles Durant MD Primary Care Provider [phone] Active Problems Problem Noted Date Diagnosed Date [...]
--- OUTSIDE RECORDS SUMMARY | 2024-04-22 11:39 | XMS_ITS | Clinical Summary ---
Author Organization [facility] Address [address] [place] [address] Phone Care Team Providers Care Creative Coordinator Name Role Phone Gilles Durant MD Primary Care Provider [phone] Allergies No known active allergies Medications nicotine (NICODERM CQ) 21 mg/24 hr patch Starting 02/14: Apply 1 Patch to skin as directed daily. 30 Patch 02/14/2024 3:40 PM MEDIA MARKETING SPECIALIST 02/15/20 24 Active sennosides-doc usate sodium (SENNA-S) 8.6-50 mg tablet Take 2 Tablets by mouth 2 times daily. 90 Tablet 02/14/2024 3:40 PM MEDIA MARKETING SPECIALIST 02/14/20 24 Active mirtazapine (REMERON SolTab) 15 mg Tablet, Rapid Dissolve Take 1 Tablet (15 mg) by mouth daily at bedtime. 30 Tablet 5 03/09/2024 6:21 PM MEDIA MARKETING SPECIALIST 03/09/19 25 Active oxyCODONE-acet aminophen (PERCOCET) 10-325 mg TabletIndicati ons:Pharyngeal carcinoma, squamous cell (CMS/HCC) Take 1 Tablet by mouth every 6 hours as needed for Pain. Max Daily Amount: 4 Tablets 20 Tablet 04/17/2024 6:02 PM MEDIA MARKETING SPECIALIST 04/17/19 25 Active oxyCODONE-acet aminophen (PERCOCET) 10-325 mg TabletIndicati ons:Pharyngeal carcinoma, squamous cell (CMS/HCC) Take 1 Tablet by mouth every 4 hours as needed for Pain. Max Daily Amount: 6 Tablets 360 Tablet 03/09/2024 6:21 PM MEDIA MARKETING SPECIALIST 03/09/19 25 025 Discontinued fentaNYL (DURAGESIC) 25 [...] Department Care Team Description 04/19/2024 Chart Note [facility] Oncology Patient Navigation [address] [place] [address] Kaya Santiago, RN Nurse Navigation (Follow up) 04/17/2024 External Device Data [facility] ABSTRACTION Provider, Abstract 04/17/2024 External Device Data [facility] ABSTRACTION Provider, Abstract 04/17/2024 External Device Data [facility] ABSTRACTION Provider, Abstract 04/15/2024 11:49 AM MEDIA MARKETING SPECIALIST - 04/17/2024 6:18 PM MEDIA MARKETING SPECIALIST Hospital Encounter [facility] [address] [place] [address] Yannick Aponte MD Rose, Evan James, DO Pettis, Matthew, MD Burke, Matthew Frederic, MD Habtu, Ariana Judge, Hypopharyngeal mass Discharge Disposition: Home or Self Care 04/15/2024 Travel 04/13/2024 Chart Note [facility] Patient Navigation [address] [place] [address] Kaya Santiago, RN Nurse Navigation (Follow up) 04/10/2024 External Device Data STL ABSTRACTION Provider, Abstract 04/04/2024 Chart Note [facility] Patient Navigation [address] [place] [address] Kaya Santiago, RN Nurse Navigation (Follow up) 04/03/2024 External Device Data [facility] ABSTRACTION Provider, Abstract 04/03/2024 External Device Data [facility] ABSTRACTION Provider, Abstract 04/03/2024 Chart Note [facility] Patient Navigation [address] [place] [address] Kaya Santiago, RN Nurse Navigation (Follow up) 03/28/2024 External Device Data [facility] ABSTRACTION Provider, Abstract 03/28/2024 External Device Data [facility] ABSTRACTION Provider, Abstract 03/27/2024 Chart Note [facility] Patient Navigation [address] [place] [address] Kaya Santiago, RN Nurse Navigation (Follow up) 03/26/2024 Chart Note [facility] Patient Navigation [address] [place] [address] Kaya Santiago, RN 03/26/2024 Telephone [facility], NOSE AND THROAT [facility] [address] [facility] [address] [place] [address] Kailey Malin, RN Follow Up 03/26/2024 Telephone [facility] Services [facility] [address] [place] [address] DME- supplement order 03/26/2024 Chart Note [facility] Patient Navigation [address] [place] [address] Kaya Santiago, RN Nurse Navigation (Follow up) 03/22/2024 Chart Note [facility] Patient Navigation [address] [place] [address] Kaya Santiago, RN Nurse Navigation (Follow up) 03/21/2024 External Device Data STL ABSTRACTION Provider, Abstract 03/21/2024 Chart Note [facility] On[facility] Patient Navigation [address] [place] [address] Kaya Santiago, RN Nurse Navigation (Follow up) 03/20/2024 Chart Note [facility] Oncology Patient Navigation [address] [place] [address] Kaya Santiago, RN Nurse Navigation (Follow up) 03/19/2024 Chart Note [facility] Oncology Patient Navigation [address] [place] [address] Kaya Santiago, RN Nurse Navigation (Follow up) 03/16/2024 Chart Note [facility] Oncology Patient Navigation [address] [place] [address] Kaya Santiago, RN Nurse Navigation (Follow up) 03/15/2024 Chart Note [facility] Oncology Patient Navigation [address] [place] [address] Kaya Santiago, RN Nurse Navigation (Follow up) 03/14/2024 Chart Note [facility] Oncology Patient Navigation [address] [place] [address] Kaya Santiago, RN Nurse Navigation (Follow up) 03/06/2024 External Device Data ST[facility] ABSTRACTION Provider, Abstract 03/05/2024 11:41 AM MEDIA MARKETING SPECIALIST Anesthesia Event [facility] Interventional Radiology [facility] [address] [place] [address] Adriano Silva MD Malatkar, Rushali, AA-C 03/05/2024 Chart Note [facility] Oncology Patient Navigation [address] [place] [address] Kaya Santiago, RN Nurse Navigation (Follow up) 03/02/2024 3:53 PM MEDIA MARKETING SPECIALIST - 03/09/2024 6:06 PM MEDIA MARKETING SPECIALIST Hospital Encounter [facility] [address] [place] [address] Chastity Novak DO Kroeger, Ryan L, Randy Diallo MD Padgett, Sabrina, MD Pharyngeal carcinoma, squamous cell (CMS/HCC) Discharge Disposition: Home or Self Care 03/02/2024 Travel 02/28/2024 Chart Note [facility] Oncology Patient Navigation [address] [place] [address] Kaya Santiago, RN Nurse Navigation (Follow up) 02/27/2024 Chart Note [facility] Oncology Patient Navigation [address] [place] [address] Kaya Santiago, RN Nurse Navigation (Follow up ) 02/27/2024 Chart Note [facility] Oncology Patient Navigation [address] [place] [address] Kaya Santiago, RN Nurse Navigation 02/24/2024 Telephone [facility], NOSE AND THROAT [facility] [place] [address] [address] Kailey Malin, JOSÉ Follow Up; Needs Appointment 02/24/2024 Orders Only [facility], NOSE AND THRO[facility] [place] [address] [address] Rhett Rivera MD 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) 02/24/2024 Telephone [facility], NOSE AND THROAT [facility] [place] 607 [facility] [address] [place] [address] Rhett Rivera MD Care Plan 02/22/2024 Telephone [facility], NOSE AND THROAT [facility] [place] 607 [facility] [address] [place] [address] Kailey Malin, RN Needs Appointment 02/15/2024 Telephone [facility], NOSE AND THROAT [facility] [place] 607 [facility] [address] [place] [address] Kailey Malin, RN Needs Appointment 02/14/2024 External Device Data ST[facility] ABSTRACTION Provider, Abstract 02/10/2024 1:30 PM MEDIA MARKETING SPECIALIST Anesthesia Event [facility] Operating Room [address] [place] [address] Mica Oliveira MD Yoder, Benjamin, AA-C 02/10/2024 1:29 PM MEDIA MARKETING SPECIALIST - 02/10/2024 3:12 PM MEDIA MARKETING SPECIALIST Surgery [facility] Operating Room [address] [place] [address] Rhett Rivera MD LARYNGOSCOPY MICRO 02/07/2024 10:25 PM MEDIA MARKETING SPECIALIST - 02/14/2024 7:00 PM MEDIA MARKETING SPECIALIST Hospital Encounter [facility] [address] [place] [address] Regina Sullivan MD Weitzel, Laura Jean, MD [...] on file Legal Sex Female 2:37 PM MEDIA MARKETING SPECIALIST Gender Identity Not on file Sexual Orientation Not on file Last Filed Vital Signs Vital Sign Reading Time Taken Comments Blood Pressure 100/68 04/17/2024 4:27 AM MEDIA MARKETING SPECIALIST Pulse 80 04/17/2024 4:27 AM MEDIA MARKETING SPECIALIST Temperature 36.6 C (97.9 F) 04/17/2024 4:27 AM MEDIA MARKETING SPECIALIST Respiratory Rate 18 04/16/2024 8:46 PM MEDIA MARKETING SPECIALIST Oxygen Saturation 99% 04/17/2024 4:30 AM MEDIA MARKETING SPECIALIST Inhaled Oxygen Concentration - - Weight 41.9 kg (92 lb 4.8 oz) 04/15/2024 5:27 PM MEDIA MARKETING SPECIALIST Height 170.2 cm (5' 7 ) 04/15/2024 5:27 PM MEDIA MARKETING SPECIALIST Body Mass Index 14.46 04/15/2024 5:27 PM MEDIA MARKETING SPECIALIST Plan of Treatment Health Maintenance Due Date [...] SWALLOW W SPEECH Routine 04/17/2024 2:52 PM MEDIA MARKETING SPECIALIST BASIC METABOLIC PANEL Routine 04/17/2024 3:27 AM MEDIA MARKETING SPECIALIST XR CHEST PA OR AP 1 VW Routine 1:45 PM MEDIA MARKETING SPECIALIST BASIC METABOLIC PANEL Routine 04/16/2024 5:53 AM MEDIA MARKETING SPECIALIST CBC WITH DIFFERENTIAL Routine 04/16/2024 5:53 AM MEDIA MARKETING SPECIALIST RAPID STREP SCREEN WITH REFLEX CULTURE Stat 04/15/2024 2:08 [address] SOFT TISSUE NECK W CONTRAST Stat 04/15/2024 1:42 PM MEDIA MARKETING SPECIALIST RESPIRATORY PATHOGEN PCR PANEL Stat 04/15/2024 12:24 PM MEDIA MARKETING SPECIALIST POC CREATININE Stat 04/15/2024 12:19 PM MEDIA MARKETING SPECIALIST IRON, TIBC, AND PERCENT SATURATION Stat 04/15/2024 12:07 PM MEDIA MARKETING SPECIALIST MAGNESIUM LEVEL Stat 04/15/2024 12:07 PM MEDIA MARKETING SPECIALIST C-REACTIVE PROTEIN Stat 04/15/2024 12 :07 PM MEDIA MARKETING SPECIALIST COMPREHENSIVE METABOLIC PANEL Stat 04/15/2024 12:07 PM MEDIA MARKETING SPECIALIST CBC WITH DIFFERENTIAL Stat 04/15/2024 12:07 PM MEDIA MARKETING SPECIALIST COMPREHENSIVE METABOLIC PANEL Stat 03/09/2024 9:50 AM MEDIA MARKETING SPECIALIST Oropharyngeal dysphagia PHOSPHORUS Routine 03/09/2024 9:50 AM MEDIA MARKETING SPECIALIST Oropharyngeal dysphagia MAGNESIUM LEVEL Routine 03/09/2024 9:50 AM MEDIA MARKETING SPECIALIST Oropharyngeal dysphagia PHOSPHORUS Routine 03/08/2024 4:54 AM MEDIA MARKETING SPECIALIST Oropharyngeal dysphagia MAGNESIUM LEVEL Routine 03/08/2024 4:54 AM MEDIA MARKETING SPECIALIST Oropharyngeal dysphagia COMPREHENSIVE METABOLIC PANEL Routine 03/08/2024 4:54 AM MEDIA MARKETING SPECIALIST Oropharyngeal dysphagia MAGNESIUM LEVEL Routine 03/07/2024 7:21 AM MEDIA MARKETING SPECIALIST Oropharyngeal dysphagia COMPREHENSIVE METABOLIC PANEL Routine 03/07/2024 7:21 AM MEDIA MARKETING SPECIALIST Oropharyngeal dysphagia PHOSPHORUS Routine 03/07/2024 7:21 AM MEDIA MARKETING SPECIALIST Oropharyngeal dysphagia MAGNESIUM LEVEL Routine 03/06/2024 6:50 AM MEDIA MARKETING SPECIALIST Oropharyngeal dysphagia COMPREHENSIVE METABOLIC PANEL Routine 03/06/2024 6:50 AM MEDIA MARKETING SPECIALIST Oropharyngeal dysphagia PHOSPHORUS Routine 03/06/2024 6:50 AM MEDIA MARKETING SPECIALIST Oropharyngeal dysphagia IR TUBE PLACEMENT Routine 03/05/2024 12: 36 PM MEDIA MARKETING SPECIALIST RI ANES INSERT ENDOTRACHEAL AIRWAY Routine 03/05/2024 11:52 AM MEDIA MARKETING SPECIALIST PHOSPHORUS Routine 03/05/2024 5:54 AM MEDIA MARKETING SPECIALIST Oropharyngeal dysphagia Hypopharyngeal mass Protein-calorie malnutrition, severe Continuous dependence on cigarette smoking Head and neck malignancy (CMS/HCC) CBC WITHOUT DIFFERENTIAL Routine 03/05/2024 5:54 AM MEDIA MARKETING SPECIALIST MAGNESIUM LEVEL Routine 03/05/2024 5:54 AM MEDIA MARKETING SPECIALIST BASIC METABOLIC PANEL Routine 03/05/2024 5:54 AM MEDIA MARKETING SPECIALIST CBC WITHOUT DIFFERENTIAL Routine 03/04/2024 6:59 AM MEDIA MARKETING SPECIALIST MAGNESIUM LEVEL Routine 03/04/2024 6:59 AM MEDIA MARKETING SPECIALIST BASIC METABOLIC PANEL Routine 03/04/2024 6:59 AM MEDIA MARKETING SPECIALIST PHOSPHORUS Routine 03/03/2024 4:25 AM MEDIA MARKETING SPECIALIST MAGNESIUM LEVEL Routine 03/03/2024 4:25 AM MEDIA MARKETING SPECIALIST COMPREHENSIVE METABOLIC PANEL Routine 03/03/2024 4:25 AM MEDIA MARKETING SPECIALIST CBC WITH DIFFERENTIAL Routine 03/03/2024 4:25 AM MEDIA MARKETING SPECIALIST PT EVAL AND TREAT Routine 03/02/2024 4:3 8 PM MEDIA MARKETING SPECIALIST OT EVAL AND TREAT Routine 03/02/2024 4:3 8 PM MEDIA MARKETING SPECIALIST BASIC METABOLIC PANEL Routine 02/14/2024 12:51 PM MEDIA MARKETING SPECIALIST CBC WITH DIFFERENTIAL Routine 02/14/2024 12:51 PM MEDIA MARKETING SPECIALIST POC GLUCOSE Routine 02/14/2024 12:50 PM MEDIA MARKETING SPECIALIST POC GLUCOSE Routine 02/14/2024 9:22 AM MEDIA MARKETING SPECIALIST POC GLUCOSE Routine 02/14/2024 4:15 AM MEDIA MARKETING SPECIALIST POC GLUCOSE Routine 02/14/2024 12:11 AM MEDIA MARKETING SPECIALIST POC GLUCOSE Routine 02/13/2024 8:28 PM MEDIA MARKETING SPECIALIST POC GLUCOSE Routine 02/13/2024 5:27 PM MEDIA MARKETING SPECIALIST POC GLUCOSE Routine 02/13/2024 12:09 PM MEDIA MARKETING SPECIALIST XR VIDEO SWALLOW W SPEECH Routine 02/13/2024 12:02 PM MEDIA MARKETING SPECIALIST POC GLUCOSE Routine 02/13/2024 8:49 AM MEDIA MARKETING SPECIALIST BASIC METABOLIC PANEL Routine 02/13/2024 4:08 AM MEDIA MARKETING SPECIALIST CBC WITH DIFFERENTIAL Routine 02/13/2024 4:08 AM MEDIA MARKETING SPECIALIST POC GLUCOSE Routine 02/12/2024 9:17 PM MEDIA MARKETING SPECIALIST POC GLUCOSE Routine 02/12/2024 4:53 PM MEDIA MARKETING SPECIALIST POC GLUCOSE Routine 02/12/2024 12:15 PM MEDIA MARKETING SPECIALIST POC GLUCOSE Routine 02/12/2024 12:14 PM MEDIA MARKETING SPECIALIST POC GLUCOSE Routine 02/12/2024 3:33 AM MEDIA MARKETING SPECIALIST POC GLUCOSE Routine 02/12/2024 2:37 AM MEDIA MARKETING SPECIALIST POC GLUCOSE Routine 02/12/2024 2:09 AM MEDIA MARKETING SPECIALIST POC GLUCOSE Routine 02/12/2024 1:40 AM MEDIA MARKETING SPECIALIST POC GLUCOSE Routine 02/12/2024 1:09 AM MEDIA MARKETING SPECIALIST POC GLUCOSE Routine 02/12/2024 12:46 AM MEDIA MARKETING SPECIALIST POC GLUCOSE Routine 02/12/2024 12:43 AM MEDIA MARKETING SPECIALIST POC GLUCOSE Routine 02/11/2024 8:04 PM MEDIA MARKETING SPECIALIST POC GLUCOSE Routine 02/11/2024 3:59 PM MEDIA MARKETING SPECIALIST POC GLUCOSE Routine 02/11/2024 11:31 AM MEDIA MARKETING SPECIALIST POC GLUCOSE Routine 02/11/2024 10:14 AM MEDIA MARKETING SPECIALIST POC GLUCOSE Routine 02/11/2024 5:17 AM MEDIA MARKETING SPECIALIST BASIC METABOLIC PANEL Routine 02/11/2024 2:30 AM MEDIA MARKETING SPECIALIST CBC WITH DIFFERENTIAL Routine 02/11/2024 2:30 AM MEDIA MARKETING SPECIALIST POC GLUCOSE Routine 02/11/2024 12:10 AM MEDIA MARKETING SPECIALIST POC GLUCOSE Routine 02/10/2024 8:15 PM MEDIA MARKETING SPECIALIST OT EVAL AND TREAT Routine 02/10/2024 4:3 4 PM MEDIA MARKETING SPECIALIST PT EVAL AND TREAT Routine 02/10/2024 4:3 4 PM MEDIA MARKETING SPECIALIST POC GLUCOSE Routine 02/10/2024 3:52 PM MEDIA MARKETING SPECIALIST PATHOLOGY Pathology 02/10/2024 1:54 PM MEDIA MARKETING SPECIALIST Hypopharyngeal mass RI ANES INSERT ENDOTRACHEAL AIRWAY Routine 02/10/2024 1:39 PM MEDIA MARKETING SPECIALIST LARYNGOSCOPY MICRO 02/10/2024 1: 29 PM MEDIA MARKETING SPECIALIST Hypopharyngeal mass POC GLUCOSE Routine 02/10/2024 9:59 AM MEDIA MARKETING SPECIALIST PHOSPHORUS Routine 02/10/2024 4:18 AM MEDIA MARKETING SPECIALIST MAGNESIUM LEVEL Routine 02/10/2024 4:18 AM MEDIA MARKETING SPECIALIST COMPREHENSIVE METABOLIC PANEL Routine 02/10/2024 4:18 AM MEDIA MARKETING SPECIALIST CBC WITH DIFFERENTIAL Routine 02/10/2024 4:18 AM MEDIA MARKETING SPECIALIST POC GLUCOSE Routine 02/10/2024 1:17 [address] ABDOMEN WO CONTRAST Routine 11:29 PM MEDIA MARKETING SPECIALIST CBC WITH DIFFERENTIAL Stat 02/09/2024 8:50 PM MEDIA MARKETING SPECIALIST POC GLUCOSE Routine 02/09/2024 6:46 PM MEDIA MARKETING SPECIALIST PHOSPHORUS Stat 02/09/2024 4:33 PM MEDIA MARKETING SPECIALIST MAGNESIUM LEVEL Stat 02/09/2024 4:33 PM MEDIA MARKETING SPECIALIST COMPREHENSIVE METABOLIC PANEL Stat 02/09/2024 4:33 PM MEDIA MARKETING SPECIALIST URINALYSIS W/REFLEX MICROSCOPIC Routine 02/08/2024 10:07 PM MEDIA MARKETING SPECIALIST CTA HEAD AND NECK W AND/OR WO CONTRAST Stat 02/08/2024 4:[address]IA [address]ETING [address] CHEST W CONTRAST Stat 02/08/2024 4 :53 PM MEDIA MARKETING SPECIALIST XR ABDOMEN FOR FEEDING TUBE 1 VW Stat 02/08/2024 2:24 PM MEDIA MARKETING SPECIALIST RESPIRATORY PATHOGEN PCR PANEL Routine 02/08/2024 12:01 PM MEDIA MARKETING SPECIALIST CEA Routine 02/08/2024 1:49 AM MEDIA MARKETING SPECIALIST COMPREHENSIVE METABOLIC PANEL Routine 02/08/2024 1:49 AM MEDIA MARKETING SPECIALIST MAGNESIUM LEVEL Routine 02/08/2024 1:49 AM MEDIA MARKETING SPECIALIST CBC WITH DIFFERENTIAL Routine 02/08/2024 1:49 AM MEDIA MARKETING SPECIALIST from Last 3 Months Results * XR VIDEO SWALLOW W SPEECH (04/17/2024 2:52 PM MEDIA MARKETING SPECIALIST) Only the most recent of2 resultswithin the time period is included. Anatomical Region Laterality Modality Chest Computed Radiogr aphy 04/17/2024 2:54 PM MEDIA MARKETING SPECIALIST Impressions 04/17/2024 2:57 PM MEDIA MARKETING SPECIALIST TECHNIQUE/IMPRESSION: Fluoroscopy was provided for an examination performed by speech and language pathology. Please see their separate report for further characterization of findings. Aspiration and penetration with all ingested liquids and solids. DICTATION LOCATION: Location 1 - [facility] Narrative 04/17/2024 2:57 PM MEDIA MARKETING SPECIALIST EXAMINATION: MODIFIED BARIUM SWALLOW DATE: 04/17/2024 2:52 [...] and solids. DICTATION LOCATION: Location 1 - [facility] Adriano Jaime MD DIAGNOSTIC IMAGING ORD ERABLES Final Result * (ABNORMAL) BASIC METABOLIC PANEL (04/17/2024 3:27 AM MEDIA MARKETING SPECIALIST) Only the most recent of7 resultswithin the time period is included. SODIUM 139 136 - 145 mmol/L 04/17/2024 4:31 AM MEDIA MARKETING SPECIALIST [email or web address] [facility] - . [facility] POTASSIUM 3.9 3.5 - 5.0 mmol/L 04/17/2024 4:31 AM MEDIA MARKETING SPECIALIST [email or web address] [facility]ORATORY SERVICES - [facility] CHLORIDE 103 98 - 107 mmol/L 04/17/2024 4:31 AM MEDIA MARKETING SPECIALIST [email or web address] [facility] - [facility] CO2 26 22 - 29 mmol/L 04/17/2024 4:31 AM MEDIA MARKETING SPECIALIST [email or web address] [facility] - . [facility] CALCIUM 8.9 8.6 - 10.2 mg/dL 04/17/2024 4:31 AM MEDIA MARKETING SPECIALIST [email or web address] [facility] - . [facility] BUN 21(H) 6 - 20 mg/dL 04/17/2024 4:31 AM [facility] CREATININE 0.51 0.51 - 0.95 mg/dL 04/17/2024 4:31 AM [facility] GLUCOSE 125(H) 74 - 99 mg/dL 04/17/2024 4:31 AM [facility] GFR >60 >=60 mL/min/1.7 3 sq meter 04/17/2024 4:31 AM [facility] Comment:eGFR calculated with 2020 CKD-EPI equation. Vegetarian diet, extremely high or low muscle mass, and may affect results. Cystatin C with Glomerular Filtration Rate is a suitable alternative for these patients. ANION GAP 10 8 - 16 mmol/L 04/17/2024 4:31 AM [facility] Blood Venipuncture / Unknown 04/17/2024 3:27 AM MEDIA MARKETING SPECIALIST 04/17/2024 3:48 AM MEDIA MARKETING SPECIALIST [employer] BIOLOGICAL SCIENCE TECHNICIAN FISH CHEMISTRY ORDERABLES Final Resu lt [facility] CLIA# [id number] [address] [place] [address] * XR CHEST PA OR AP 1 VW (04/16/2024 1:45 PM MEDIA MARKETING SPECIALIST) Anatomical Region Laterality Modality Chest Computed Radiogr aphy 04/16/2024 1:45 PM MEDIA MARKETING SPECIALIST Impressions 04/17/2024 12:14 PM MEDIA MARKETING SPECIALIST IMPRESSION: No acute cardiopulmonary process is identified. DICTATION LOCATION: Location 2 - [facility] Narrative 04/17/2024 12:14 PM MEDIA MARKETING SPECIALIST EXAM: XR CHEST PA OR AP 1 [...] cardiopulmonary process is identified. DICTATION LOCATION: Location [address] [place] [address] Adriano Jaime MD DIAGNOSTIC IMAGING ORD ERABLES Final Result * (ABNORMAL) CBC WITH DIFFERENTIAL (04/16/2024 5:53 AM MEDIA MARKETING SPECIALIST) Only the most recent of9 resultswithin the time period is included. WBC 10.4(H) 4.0 - 9.8 K/uL 04/16/2024 7:26 AM [employer] [facility] RBC 4.34 3.90 - 4.90 M/uL 04/16/2024 7:26 AM MEDIA MARKETING SPECIALIST [email or web address] [facility]ORAT[facility] HEMOGLOBIN 10.6(L) 11.8 - 14.8 g/dL 04/16/2024 7:26 AM [employer] [facility] HEMATOCRIT 35.1(L) 35.5 - 44.0 % 04/16/2024 7:26 AM MEDIA MARKETING SPECIALIST [email or web address] [facility]ORAT[facility] SERVICES [facility] MCV 80.9(L) 82.0 - 99.0 fL 04/16/2024 7:26 AM [employer] [facility] MCH 24.4(L) 27.2 - 32.6 pg 04/16/2024 7:26 AM MEDIA MARKETING SPECIALIST [email or web address] [facility]ORATORY SERVICES [facility] MCHC 30.2(L) 31.5 - 35.5 g/dL 04/16/2024 7:26 AM [employer] [facility] RDW 17.7(H) 11.5 - 14.5 % 04/16/2024 7:26 AM MEDIA MARKETING SPECIALIST [email or web address] [facility]ORAT[facility] SERVICES [facility] RDW-STDEV 52.4(H) 37.1 - 48.7 fL 04/16/2024 7:26 AM MEDIA MARKETING SPECIALIST [email or web address] [facility]ORAT[facility] PLATELETS 429(H) 140 - 350 K/uL 04/16/2024 7:26 AM [facility] [employer] [facility] MPV 10.4 9.3 - 12.4 fL 04/16/2024 7:26 AM [facility] [employer] [facility] NEUTROPHILS 83 % 04/16/2024 7:26 AM [facility] [employer] [facility] LYMPHOCYTES 10 % 04/16/2024 7:26 AM [facility] [employer] [facility]. [facility] MONOCYTES 7 % 04/16/2024 7:26 AM [facility] [employer] [facility]. [facility] EOSINOPHILS 0 % 04/16/2024 7:26 AM [facility] [employer] [facility] BASOPHILS 0 % 04/16/2024 7:26 AM [facility] [employer] [facility] IMMATURE GRANULOCYTES 1 % 04/16/2024 7:26 AM [facility] [employer] [facility] Comment:IG (Immature Granulo cyte) count includes Metamyelocytes, Myelocytes, and Promyelocytes NEUTROPHIL ABSOLUTE 8.57(H) 1.90 - 7.00 K/uL 04/16/2024 7:26 AM [facility] [employer] [facility] LYMPHOCYTE ABSOLUTE 0.99 0.70 - 4.50 K/uL 04/16/2024 7:26 AM [facility] [employer] [facility] MONOCYTE ABSOLUTE 0.73 0.10 - 1.30 K/uL 04/16/2024 7:26 AM [facility] [employer] [facility] EOSINOPHIL ABSOLUTE 0.01 0.00 - 0.70 K/uL 04/16/2024 7:26 AM [facility] [employer] [facility] BASOPHILS ABSOLUTE 0.02 0.00 - 0.20 K/uL 04/16/2024 7:26 AM [facility] [employer] [facility] IMMATURE GRANULOCYTES ABSOLUTE 0.05(H) 0.00 - 0.03 K/uL 04/16/2024 7:26 AM [facility] Blood Venipuncture / Unknown 04/16/2024 5:53 AM MEDIA MARKETING SPECIALIST 04/16/2024 7:14 AM [facility] [employer] BIOLOGICAL SCIENCE TECHNICIAN FISH HEMATOLOGY ORDERABLES Final Res [id number] [address] [place] [address] * RAPID STREP SCREEN WITH REFLEX CULTURE (04/15/2024 2:08 PM MEDIA MARKETING SPECIALIST) Pathologist [facility] RAPID STREP Not Detected Not Detected 04/15/2024 3:46 PM MEDIA MARKETING SPECIALIST [facility] Comment:This Group A Strep t est [...] Unknown Collection / Unknown 04/15/2024 2:08 PM MEDIA MARKETING SPECIALIST 04/15/2024 2:10 PM MEDIA MARKETING SPECIALIST Yannick Aponte MD MICROBIOLOGY - GENERA L ORDERABLES Final Result [facility]# [id number] [address] [place] [address] * CT SOFT TISSUE NECK W CONTRAST (04/15/2024 1:42 PM MEDIA MARKETING SPECIALIST) Anatomical Region Laterality Modality Neck Computed Tomogra phy 04/15/2024 1:43 PM MEDIA MARKETING SPECIALIST Impressions 04/15/2024 1:58 PM MEDIA MARKETING SPECIALIST IMPRESSION: 1. Progressed hypopharyngeal/cervical esophageal mass representing a primary head and neck malignancy and progressed metastatic cervical lymphadenopathy as described above. DICTATION LOCATION: Location 1 - [facility] Narrative 04/15/2024 1:58 PM MEDIA MARKETING SPECIALIST EXAMINATION: CT SOFT TISSUE NECK W CONTRAST [...] described above. DICTATION LOCATION: Location 1 - [facility] Yannick Aponte MD CT ORDERABLES Final Result * RESPIRATORY PATHOGEN PCR PANEL (04/15/2024 12:24 PM MEDIA MARKETING SPECIALIST) Only the most recent of2 resultswithin the time period is included. Respiratory Pathogen PCR Panel NOT DETECTED No respiratory pathogen nucleic acids detected. 04/15/2024 1:51 PM MEDIA MARKETING SPECIALIST [facility] COVID-19 PCR NOT DETECTED Not Detected 04/15/2024 1:51 PM MEDIA MARKETING SPECIALIST [facility] Upper Respiratory ENTIRE NASOPHARYNX / Unknown Collection / Unknown 04/15/2024 12:24 PM MEDIA MARKETING SPECIALIST 04/15/2024 12:38 PM MEDIA MARKETING SPECIALIST Narrative [facility] - 04/15/2024 1:51 PM MEDIA MARKETING SPECIALIST The Film Array Respiratory Panel (RP2.1) is [...] MICROBIOLOGY - GENERA L ORDERABLES Final Result [facility]# [id number] 5 [facility] [place] [address] * POC CREATININE (04/15/2024 12:19 PM MEDIA MARKETING SPECIALIST) CREATININE POC 0.50 0.50 - 1.00 mg/dL 04/15/2024 12:19 PM [facility] GFR POC >60 >=60 mL/min/1.7 3 sq meter 04/15/2024 12:19 PM [facility] Comment:eGFR calculated with 2020 CKD-EPI equation. Vegetarian diet, extremely high or low muscle mass, and may affect results. Cystatin C with Glomerular Filtration Rate is a suitable alternative for these patients. Blood, whole 04/15/2024 12:1 9 PM MEDIA MARKETING SPECIALIST 04/15/2024 12:20 PM MEDIA MARKETING SPECIALIST Yannick Aponte MD POINT OF CARE TESTING Final Result Performing Organization Address City/[facility]/ZIP Co de Phone Number [facility]# [id number] 5 [facility] [place] [address] * (ABNORMAL) IRON, TIBC, AND PERCENT SATURATION (04/15/2024 12:07 PM MEDIA MARKETING SPECIALIST) IRON 19(L) 37 - 145 ug/dL 04/15/2024 3:21 PM [facility] TIBC 237(L) 250 - 450 ug/dL 04/15/2024 3:21 PM [facility] IRON % SATURATION 8(L) 15 - 50 % 04/15/2024 3:21 PM [facility] TRANSFERRIN 187(L) 200 - 360 mg/dL 04/15/2024 3:21 PM [facility] Blood Venipuncture / Unknown 04/15/2024 12:07 PM MEDIA MARKETING SPECIALIST 04/15/2024 12:15 PM MEDIA MARKETING SPECIALIST Kvng Johnson NP CHEMISTRY ORDERABLES Final Resu lt [facility] [employer] [facility] CLIA# [id number] [address] [place] [address] * (ABNORMAL) C-REACTIVE PROTEIN (04/15/2024 12:07 PM MEDIA MARKETING SPECIALIST) Pathologist [facility] CRP 56.8(H) <5.0 mg/L 04/15/2024 1:04 PM MEDIA MARKETING SPECIALIST [facility] Blood Venipuncture / Unknown 04/15/2024 12:07 PM MEDIA MARKETING SPECIALIST 04/15/2024 12:15 PM MEDIA MARKETING SPECIALIST Yannick Aponte MD CHEMISTRY ORDERABLES Final Result Performing Organization Address City/[facility]/ZIP Co de Phone Number [facility] [employer] [facility]# [id number] [address] [place] [address] * MAGNESIUM LEVEL (04/15/2024 12:07 PM MEDIA MARKETING SPECIALIST) Only the most recent of11 resultswithin the time period is included. Pathologist [facility] MAGNESIUM 2.2 1.6 - 2.6 mg/dL 04/15/2024 1:07 PM [facility] Blood Venipuncture / Unknown 04/15/2024 12:07 PM MEDIA MARKETING SPECIALIST 04/15/2024 12:15 PM MEDIA MARKETING SPECIALIST Yannikc Aponte MD CHEMISTRY ORDERABLES Final Result [facility]# [id number] [address] [place] [address] * (ABNORMAL) COMPREHENSIVE METABOLIC PANEL (04/15/2024 12:07 PM MEDIA MARKETING SPECIALIST) Only the most recent of9 resultswithin the time period is included. Pathologist [facility] SODIUM 139 136 - 145 mmol/L 04/15/2024 1:07 PM [facility] POTASSIUM 4.8 3.5 - 5.0 mmol/L 04/15/2024 1:07 PM MEDIA MARKETING SPECIALIST [facility] Comment:Moderate hemolysis p resent. Can cause significant falsely elevated result. Redraw if indicated. CHLORIDE 103 98 - 107 mmol/L 04/15/2024 1:07 PM [facility] CO2 26 22 - 29 mmol/L 04/15/2024 1:07 PM [facility] CALCIUM 9.6 8.6 - 10.2 mg/dL 04/15/2024 1:07 PM [facility] BUN 13 6 - 20 mg/dL 04/15/2024 1:07 PM [facility] CREATININE 0.47(L) 0.51 - 0.95 mg/dL 04/15/2024 1:07 PM [facility] GLUCOSE 140(H) 74 - 99 mg/dL 04/15/2024 1:07 PM [facility] TOTAL PROTEIN 7.8 6.7 - 8.6 g/dL 04/15/2024 1:07 PM [facility] ALBUMIN 3.5 3.5 - 5.2 g/dL 04/15/2024 1:07 PM [facility] BILIRUBIN TOTAL 0.3 0.3 - 1.2 mg/dL 04/15/2024 1:07 PM [facility] ALKALINE PHOSPHATASE 112(H) 35 - 104 U/L 04/15/2024 1:07 PM [facility] AST 04/15/2024 1:07 PM [facility] Comment:Test cannot be perfo rmed. Sample hemolysis interference above limits. Redraw if indicated. ALT 15 <34 U/L 04/15/2024 1:07 PM [facility] Comment:Hemolysis present. R esult may be falsely elevated. GFR >60 >=60 mL/min/1. 73 sq meter 04/15/2024 1:07 PM [facility] Comment:eGFR calculated with 2020 CKD-EPI equation. Vegetarian diet, extremely high or low muscle mass, and may affect results. Cystatin C with Glomerular Filtration Rate is a suitable alternative for these patients. ANION GAP 10 8 - 16 mmol/L 04/15/2024 1:07 PM MEDIA MARKETING SPECIALIST [facility] Blood Venipuncture / Unknown 04/15/2024 12:07 PM MEDIA MARKETING SPECIALIST 04/15/2024 12:15 PM MEDIA MARKETING SPECIALIST Narrative [facility] - 04/15/2024 1:07 PM MEDIA MARKETING SPECIALIST Samples containing indocyanine green cause interferences on Total and/or Direct Bilirubin and must not be measured. Yannick Aponte MD CHEMISTRY ORDERABLES Final Result Performing Organization Address [facility]/ZIP Co de Phone Number [facility]# [id number] [address] [place] [address] * PHOSPHORUS (03/09/2024 9:50 AM MEDIA MARKETING SPECIALIST) Only the most recent of8 resultswithin the time period is included. PHOSPHORUS 3.7 2.5 - 4.5 mg/dL 03/09/2024 11:07 AM MEDIA MARKETING SPECIALIST [facility] Blood Venipuncture / Unknown 03/09/2024 9:50 AM MEDIA MARKETING SPECIALIST 03/09/2024 10:09 AM MEDIA MARKETING SPECIALIST Lakisha Dang MD CHEMISTRY ORDERABLES Final Re sult Performing Organization Address [facility]/ZIP Co de Phone Number [facility]# [id number] [address] [place] [address] * IR TUBE PLACEMENT (03/05/2024 12:36 PM MEDIA MARKETING SPECIALIST) Anatomical Region Laterality Modality X-Ray Angiograph y 03/05/2024 12:3 6 PM MEDIA MARKETING SPECIALIST Impressions 03/05/2024 12:58 PM MEDIA MARKETING SPECIALIST IMPRESSION: Technically successful placement of a 16 Fr Entuit percutaneous gastrostomy catheter as detailed above. DICTATION LOCATION: Location 1 - [facility] Narrative 03/05/2024 12:58 PM MEDIA MARKETING SPECIALIST PERCUTANEOUS GASTROSTOMY TUBE UNDER FLUOROSCOPIC GUIDANCE TIME/DATE: [...] as detailed above. DICTATION LOCATION: Location 1 [facility] Randy Torres MD IR ORDERABLES Final Result * RI ANES INSERT ENDOTRACHEAL AIRWAY (03/05/2024 11:52 AM MEDIA MARKETING SPECIALIST) Narrative Osmin Kim AA-C - 03/05/2024 11:52 AM MEDIA MARKETING SPECIALIST Osmin Kim AA-C 03/05/2024 12:13 PM Airway Date/Time: 03/05/2024 11:52 AM Location: OR Plan: routine intubation Patient Identity Confirmed by: Verbally with patient and armband Staffing Performed: INSURANCE BILLING CLERK/CAA Authorized by: Adriano Silva MD Performed by: [...] (ABNORMAL) CBC WITHOUT DIFFERENTIAL (03/05/2024 5:54 AM MEDIA MARKETING SPECIALIST) Only the most recent of2 resultswithin the time period is included. WBC 7.6 4.0 - 9.8 K/uL 03/05/2024 6:40 AM [employer] [facility] RBC 4.27 3.90 - 4.90 M/uL 03/05/2024 6:40 AM MEDIA MARKETING SPECIALIST [email or web address] [facility] HEMOGLOBIN 11.0(L) 11.8 - 14.8 g/dL 03/05/2024 6:40 AM MEDIA MARKETING SPECIALIST [email or web address] [facility] HEMATOCRIT 34.8(L) 35.5 - 44.0 % 03/05/2024 6:40 AM MEDIA MARKETING SPECIALIST [email or web address] [facility] MCV 81.5(L) 82.0 - 99.0 fL 03/05/2024 6:40 AM [employer] [facility] MCH 25.8(L) 27.2 - 32.6 pg 03/05/2024 6:40 AM MEDIA MARKETING SPECIALIST [email or web address] [facility] MCHC 31.6 31.5 - 35.5 g/dL 03/05/2024 6:40 AM MEDIA MARKETING SPECIALIST [employer] [facility] PLATELETS 447(H) 140 - 350 K/uL 03/05/2024 6:40 AM MEDIA MARKETING SPECIALIST [email or web address] [facility] MPV 9.8 9.3 - 12.4 fL 03/05/2024 6:40 AM [employer] [facility] RDW 17.8(H) 11.5 - 14.5 % 03/05/2024 6:40 AM MEDIA MARKETING SPECIALIST [facility] RDW-STDEV 53.3(H) 37.1 - 48.7 fL 03/05/2024 6:40 AM MEDIA MARKETING SPECIALIST [facility] Blood Venipuncture / Unknown 03/05/2024 5:54 AM MEDIA MARKETING SPECIALIST 03/05/2024 6:18 AM MEDIA MARKETING SPECIALIST Randy Torres MD HEMATOLOGY ORDERABLES Final Resu lt [facility] CLIA# [id number] [address] [place] [address] * (ABNORMAL) POC GLUCOSE (02/14/2024 12:50 PM MEDIA MARKETING SPECIALIST) Only the most recent of30 resultswithin the time period is included. GLUCOSE POC 101(H) 74 - 99 mg/dL 02/14/2024 12:50 PM MEDIA MARKETING SPECIALIST [facility] SPECIMEN SOURCE, GLUCOSE POC Whole Blood 02/14/2024 12:50 PM MEDIA MARKETING SPECIALIST [facility] COMMENT, GLU POC Notified RN/MD 02/14/2024 12:50 PM MEDIA MARKETING SPECIALIST [facility] Blood, whole 02/14/2024 12:5 0 PM MEDIA MARKETING SPECIALIST 02/14/2024 12:58 PM MEDIA MARKETING SPECIALIST Frank Joe MD POINT OF CARE TESTING Final Resu lt [facility] CLIA# [id number] [address] [place] [address] * PATHOLOGY (02/10/2024 1:54 PM MEDIA MARKETING SPECIALIST) CASE REPORT Surgical Pathology Report Case: [id number] Authorizing Provider: Rhett Rivera MD Collected: 02/10/2024 01:54 PM Ordering Location: [facility] Received: 02/10/2024 02:45 PM Operating Room Pathologist: Wilmar Burnett MD Specimens: A) - Nasopharynx, Throat - LEFT POSTERIOR HYPOPHARYNX B) - Nasopharynx, Throat - LEFT POSTERIOR HYPOPHARYNX 4 9:14 AM [facility] FINAL DIAGNOSIS A. Pharynx, left posterior hypopharynx, biopsy (FS1) - Squamous cell carcinoma, moderately differentiated, keratinizing type B. Pharynx, left posterior hypopharynx, biopsy - Squamous cell carcinoma, moderately differentiated, keratinizing type 4 9:14 AM [facility] S DESCRIPTION Two containers are received labeled [...] entirely labeled B1. KA 4 9:14 AM [facility] MICROSCOPIC DESCRIPTION The slides are labeled [id number] and Dara You. Examination of permanent sections confirm the intraoperative frozen section diagnosis. 4 9:14 AM [facility] INTRAOPERATIVE CONSULTATION FS1-left posterior hypopharynx-squamous cell carcinoma. The diagnosis was given to Trish in OR [address] Pancho Spangler. 4 9:14 AM [facility] OPERATIVE PROCEDURE 1: LARYNGOSCOPY MICRO 4 9:14 AM [facility] CLINICAL INFORMATION hyopharynx mass J39.2-Hypopharyngeal mass 4 9:14 AM [facility] COMMENT Special stain, immunohistochemical, and/or in situ hybridization results are interpreted with controls that demonstrate appropriate staining reactions. Note on use of immunohistochemistry reagents and in situ hybridization probes: These tests were developed and their performance characteristics determined by [facility], Department of Laboratory Medicine. It has [...] part or completely in the following laboratories: [facility], CLIA #[id number] [address] [place] [address] [facility], [place] #[id number] [address] [place] [address] [facility], CLIA #[id number] [address] [place] [address] This report was created with the [employer] voice-activated dictation system. Inherent to this system is the possibility of syntax, grammar, punctuation and other errors that could impact the interpretation of the report. If there are interpretative questions about aspects of this report, please contact the performing pathologist. 9:14 AM MEDIA MARKETING SPECIALIST [facility] Tissue ENTIRE NASOPHARYNX / Unknown Collection / Unknown 02/10/2024 1:54 PM MEDIA MARKETING SPECIALIST 02/10/2024 2:45 PM MEDIA MARKETING SPECIALIST Tissue specimen (specimen) ENTIRE NASOPHARYNX / Unknown 02/10/2024 1:59 PM MEDIA MARKETING SPECIALIST 02/10/2024 2:45 PM MEDIA MARKETING SPECIALIST us Rhett Rivera MD PATHOLOGY/CYTOLOGY ORDERABLES Fi nal Result [facility]# [id number] [address] [facility] [place] [address] * RI ANES INSERT ENDOTRACHEAL AIRWAY (02/10/2024 1:39 PM MEDIA MARKETING SPECIALIST) Narrative Eze Carmona AA-C - 02/10/2024 1:39 PM MEDIA MARKETING SPECIALIST Eze Carmona AA-C 02/10/2024 1:50 PM Airway Date/Time: 02/10/2024 1:39 PM Location: OR Plan: routine intubation Patient Identity Confirmed by: Verbally with patient and armband Airway: not difficult Staffing Performed: INSURANCE BILLING CLERK/CAA Authorized by: Mica Oliveira MD Performed by: Eze Carmona AA-C Indications and Patient Condition: Indications [...] CT ABDOMEN WO CONTRAST (02/09/2024 11:29 PM MEDIA MARKETING SPECIALIST) Anatomical Region Laterality Modality Abdomen Computed Tomogra phy 02/09/2024 11:1 8 PM MEDIA MARKETING SPECIALIST Impressions 02/10/2024 9:14 AM MEDIA MARKETING SPECIALIST IMPRESSION: 1. Normal gastric anatomy. 2. Diffuse sclerosis of T12. The differential includes metastasis. This could be better evaluated with thoracic MRI or bone scan. DICTATION LOCATION: 1 Narrative 02/10/2024 9:14 AM MEDIA MARKETING SPECIALIST EXAMINATION: CT OF THE ABDOMEN WITHOUT CONTRAST [...] URINALYSIS WITH REFLEX MICROSCOPIC (02/08/2024 10:07 PM MEDIA MARKETING SPECIALIST) COLOR UA Yellow Pale to Dark Yellow 02/08/2024 10:36 PM MEDIA MARKETING SPECIALIST [employer] [facility] CLARITY UA Clear Clear 02/08/2024 10:36 PM MEDIA MARKETING SPECIALIST [email or web address] LABORATORY SERVICES [facility] SPECIFIC GRAVITY UA 1.015 1.003 - 1.035 02/08/2024 10:36 PM MEDIA MARKETING SPECIALIST [email or web address] LABORATORY [facility] PH UA 6.0 5.0 - 8.0 02/08/2024 10:36 PM [facility] LEUKOCYTE ESTERASE UA Negative Negative 02/08/2024 10:36 PM [facility] NITRITE UA Negative Negative 02/08/2024 10:36 PM [facility] PROTEIN UA Trace(A) Negative 02/08/2024 10:36 PM [facility] GLUCOSE UA Negative Negative 02/08/2024 10:36 PM [facility] KETONES UA 1+(A) Negative 02/08/2024 10:36 PM [facility] UROBILINOGEN UA 2.0(A) <2.0 mg/dL 10:36 PM [facility] BILIRUBIN UA Negative Negative 02/08/2024 10:36 PM [facility] BLOOD UA Trace(A) Negative 02/08/2024 10:36 PM [facility] Urine URINE SPECIMEN OBTAINED BY CLEAN CATCH PROCEDURE / Unknown Collection / Unknown 02/08/2024 10:07 PM MEDIA MARKETING SPECIALIST 02/08/2024 10:17 PM MEDIA MARKETING SPECIALIST Melodie Araujo BIOLOGICAL SCIENCE TECHNICIAN FISH URINE ORDERABLES Final R esult [facility]# [id number] [address] [facility] [place] [address] * CTA HEAD AND NECK W AND/OR WO CONTRAST (02/08/2024 4:54 PM MEDIA MARKETING SPECIALIST) Anatomical Region Laterality Modality Head Computed Tomogra phy 02/08/2024 4:49 PM MEDIA MARKETING SPECIALIST Impressions 02/08/2024 5:14 PM MEDIA MARKETING SPECIALIST IMPRESSION: 1. No acute intracranial hemorrhage. 2. No large arterial occlusions or significant stenoses identified in the head or neck. 3. 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 This could be further stage by PET/CT, if needed. DICTATION LOCATION: Location 1 - [facility] Narrative 02/08/2024 5:14 PM MEDIA MARKETING SPECIALIST EXAMINATION: CTA HEAD AND NECK W AND/OR [...] than 50 percent focal stenosis by [place] Stroke and Carotid Endarterectomy Trial (NASCET) criteria. [...] than 50 percent focal stenosis by [place] Stroke and Carotid Endarterectomy Trial (NASCET) criteria. [...] if needed. DICTATION LOCATION: Location 1 - [facility] Razia Humphreys CUP MACHINE OPERATOR CT ORDERABLES Final Resul t * CT CHEST W CONTRAST (02/08/2024 4:53 PM MEDIA MARKETING SPECIALIST) Anatomical Region Laterality Modality Chest Computed Tomogra phy 02/08/2024 4:52 PM MEDIA MARKETING SPECIALIST Impressions 02/08/2024 6:02 PM MEDIA MARKETING SPECIALIST IMPRESSION: Mild superior mediastinal lymphadenopathy. Soft tissue [...] LOCATION: Location 4 Narrative 02/08/2024 6:[address] SPECIALIST [address] OF THE CHEST WITH INTRAVENOUS CONTRAST [...] FEEDING TUBE 1 VW (02/08/2024 2:24 PM MEDIA MARKETING SPECIALIST) Anatomical Region Laterality Modality Abdomen Computed Radiogr aphy 02/08/2024 2:25 PM MEDIA MARKETING SPECIALIST Impressions 02/08/2024 2:29 PM MEDIA MARKETING SPECIALIST IMPRESSION: 1. Enteric feeding tube terminates in the body of the stomach. DICTATION LOCATION: [address] 02/08/2024 2:29 PM MEDIA MARKETING SPECIALIST EXAMINATION: XR ABDOMEN FOR FEEDING TUBE 1 [...] the stomach. DICTATION LOCATION: Location 9 - [facility] Razia Humphreys CUP MACHINE OPERATOR DIAGNOSTIC IMAGING ORDERABL ES Final Result * CEA (02/08/2024 1:49 AM MEDIA MARKETING SPECIALIST) CEA <1.8 <3.9 ng/mL 02/08/2024 8:26 AM MEDIA MARKETING SPECIALIST [facility] Blood Venipuncture / Unknown 02/08/2024 1:49 AM MEDIA MARKETING SPECIALIST 02/08/2024 2:05 AM MEDIA MARKETING SPECIALIST Narrative [facility] - 02/08/2024 8:26 AM MEDIA MARKETING SPECIALIST Reference Range: Non-smoker: </= 3.8 ng/mL Smoker: [...] Araujo NP CHEMISTRY ORDERABLES Fin al Result [facility] CLIA# [id number] [address] [place] [address] from Last 3 Months Insurance RX [facility] [employer] (INTERNAL) [facility] [employer] RX [facility] [employer] [place] Advance Directives For more information, please contact: [phone] * Full Code (Latest Code Status on File) Date Activated Date Inactivated Comments 04/15/2024 2:48 PM 04/17/2024 8:18 PM * Full Code Date Activated Date Inactivated Comments 03/02/2024 4:38 PM 03/09/2024 8:11 PM * Full Code Date Activated Date Inactivated Comments 02/07/2024 11:58 PM 02/14/2024 10:04 PM Care Teams Creative Coordinator Relationship Specialty Start Date End Date Gilles Durant MD [address] [facility] [address] [place] [address] PCP - General Internal Medicine 02/08/24
[2024-04-22 11:53] LABS: Glucose Point of Care 89 mg/dl (65-105)
[2024-04-22 12:14] LABS: Basophils Percent Auto 0.3 % (0.2-1.2); Hemoglobin 9.8 g/dL (12.0-15.0); Immature Granulocyte Absolute 0.06 K/mm3 (0.00-0.031); Immature Granulocyte Percent A 0.5 % (0-0.5); Lymphocytes Absolute Auto 1.19 K/mm3 (0.9-3.2); Lymphocytes Percent Auto 10.5 % (18.3-44.2); Mean Corpuscular HGB Conc 30.6 g/dl (32-36); Mean Corpuscular Hemoglobin 23.8 pg (26-34); Mean Corpuscular Volume 77.7 fl (80-100); Mean Platelet Volume 9.1 fl (7.4-10.4); Monocytes Absolute Auto 0.8 K/mm3 (0.1-0.6); Monocytes Percent Auto 7.3 % (2.6-8.5); Neutrophils Absolute Auto 9.2 K/mm3 (1.3-6.7); Neutrophils Percent Auto 81.4 % (45.5-73.1); Platelet Count Result 507 k/mm3 (150-375); Red Blood Count 4.12 M/mm3 (4.2-5.4); Red Cell Distribution Width 17.3 % (11.5-14.5); White Blood Count 11.3 K/mm3 (4.5-10.0)
[2024-04-22 12:23] LABS: Alanine Aminotransferase 23 U/L (6-35); Albumin Level 3.6 g/dL (3.5-5.1); Alkaline Phosphatase 120 U/L (38-126); Anion Gap 10 mmol/L (4-12); Aspartate Amino Transferase 25 U/L (14-36); Bilirubin,Total 0.4 mg/dL (0.2-1.3); Blood Urea Nitrogen 14 mg/dL (7-17); Calcium 9.8 mg/dL (8.4-10.2); Carbon Dioxide 29 mmol/L (22-30); Chloride 100 mmol/L (98-107); Estimated CRCL calculation 78 ml/min; Estimated Glomerular Filt Rate > 60; Glucose 96 mg/dL (65-110); Potassium 3.7 mmol/L (3.4-5.0); Sodium 139 mmol/L (137-145)
[2024-04-22 12:25] LABS: INR 1.1; Prothrombin Time 14.4 Seconds (11.1-14.7)
[2024-04-22 12:26] LABS: Partial Thromboplastin Time 27.8 Seconds (22.3-36.8)
[2024-04-22] MEDS: SODIUM CHLORIDE 0.9% IV 1,000 ML 999 ML IV CONT (12:26)
[2024-04-22] MEDS: HYDROmorphone HCL INJ (*CRX) 1 MG/ML SYR 0.5 MG IV PUSH ×3 (12:27→20:24)
[2024-04-22 12:49] LABS: Influenza A QL RT-PCR Negative (Negative); Influenza B QL RT-PCR Negative (Negative); RSV RNA, RT-PCR Negative (Negative); SARS-CoV-2 RNA PCR Negative (Negative)
--- NOTE | 2024-04-22 15:47 | PC.NURSE ---
Attempted to draw blood cultures 4 times on pt. EDP, Dr. Contreras aware, states to start antibiotics.
[2024-04-22] MEDS: PIPERACILLN/TAZ 3.375GM/NS50ML 3.375 GM/50 ML BAG IVPB (16:03)
--- NOTE | 2024-04-22 16:05 | PC.NURSE ---
This RN and phlebotomy at bedside, phleb attempted to draw blood cultures, pt states, You're not poking me. I am dying of terminal cancer. Leave me the fuck alone. EDP Dr. Contreras aware, antibiotics started.
--- NOTE | 2024-04-22 16:17 | PC.NURSE ---
Meal tray ordered for pt.
[2024-04-22] MEDS: LACTATED RINGERS 1,000 ML 125 ML IV CONT (18:40)
[2024-04-22 19:04] VITALS: BP 117/80; PULSE 98; RESP 21; O2SAT 99
--- NOTE | 2024-04-22 20:30 | PM.IMHP ---
H&P: HPI History of Present Illness Date/Time: 04/22/24 20:30 Chief Complaint: Difficulty swallowing Narrative: 58-year-old female with a past medical history of squamous cell carcinoma of and severe protein calorie malnutrition who presented to the ER via EMS from home due to difficulty swallowing and increased left-sided throat pain. The patient was just discharged from [facility] within the last couple of weeks. Time frame is uncertain as the patient is a poor historian. Is unclear the patient has primary squamous cell carcinoma of the head and neck or if she has lung cancer with metastases to the head neck. She provides variable history. She was diagnosed with cancer in February when she went in for difficulty swallowing and sore throat. She notes that she has had chronic lymph nodes in the right side of her neck since then. However in the last 24 hours she had developed severe tenderness and large area of swelling in her left neck. She denies any ill contacts. She reports increased sore throat and marked difficulty swallowing. She reports that she usually has a chronic cough with clear mucus production. But over more recent time frame she has developed some tannish to brownish sputum production. She does have a history of chronic tobacco use and used to smoke 2 packs per day but since her cancer diagnosis has cut down to 3 or 4 cigarettes a day. Unfortunately she is still also smoking crack cocaine to help ?mask her pain?. She states that she started doing that to treat pain since nobody was given her pain medications. However external medication reconciliation demonstrates patient was given a prescription for Percocet 180 tablets on discharge from [facility] March 09. She denies any fevers or chills. She is noted to be markedly cachectic. She reports that in February she was about 150 lb. She is now a little over 90 lb. She reports that she was 150 lb in February. She had a G-tube placed in March due to severe protein calorie malnutrition she has been receiving 1.5 concentrate tube feeds 4 4 cans given in bolus throughout the day. She has of of still eating food. She states that she is eating okay except for having some pain. But as time of my evaluation the patient could not even swallow her mucous. She was requiring in car psych morin and to get the mucus out of the back of her mouth. She also reports constipation does developed recently. She reports that the Senokot/docusate that she has been prescribed does not help. She reports occasional blood-streaked stool when she is passing hard stools. She denies any nausea or vomiting. CT scan of the soft tissues of the neck with contrast demonstrated asymmetry within the subglottic larynx to left of midline with 19 mm rim enhancing fluid collection for which abscess versus necrotic lymph node is suspected. ER did contact [facility] but they refused to accept the patient back in transfer as they did not have ENT services. She last used crack cocaine in a on 04/21/2024. Review of Systems Review of Systems: 12 systems were reviewed with pertinent positives and negatives per HPI. Except as documented in the HPI, all other systems were reviewed and are negative. [facility] Past Medical History Medical History (Updated 04/22/24 @ 20:42 by Starr Lam DO) Severe protein-calorie malnutrition Primary squamous cell carcinoma of throat Surgical History Surgical History (Updated 04/22/24 @ 20:40 by Starr Lam DO) Status post insertion of percutaneous endoscopic gastrostomy (PEG) tube Family History Family History (Updated 04/22/24 @ 22:25 by Kelle Yoon RN) Mother Lung cancer Social History Social History (Updated 04/23/24 @ 02:48 by Starr Lam DO) Social History: The patient reports that she has lived with a friend since a roommate abandoned her in February in [facility]. She states that she raised 4 children. She has been on disability since 2021 after she required extensive reconstruction of her lower extremity after a fall. She has smoked up to 2 packs of cigarettes per day but recently cut down to 3-4 cigarettes a day after her cancer diagnosis. She does smoke marijuana frequently. She also smokes crack cocaine on a somewhat frequent basis. Code status: Full code Surrogate decision maker: She reports that she would want her mother to beers surrogate decision maker but the easiest person to contact would be her daughter [place]. Smoking packs per day: 2 Smoking cigarettes per day: 40.0 Years smoked: 40 Smoking pack-years: 80.00 Smoking status: Current every day smoker Tobacco type: cigarettes Alcohol intake: never Substance use: current Substance use type: marijuana and crack/cocaine Last use: 04/21/2024 Do You Feel Safe in your Home?: Yes Lack of Transportation: YES Lack of Food: Sometimes True Current Housing: I Do Not Have Housing Concerned About Future Housing: YES Difficulty Paying Gas/Electric Bills: YES Difficulty Paying for Meds: YES Currently Unemployed: No Education: Grade School Difficulty w/ Childcare or Family Care: No Spiritual care concerns: No Meds Home Medications and Allergies Home Medications ?Medication ?Instructions ?Recorded ?Confirmed ?Type nicotine 21 mg/24 hr daily 1 patch transdermal DAILY 04/22/24 04/22/24 History transdermal patch oxycodone-acetaminophen 10 mg-325 1 tablet PO BID pain 04/22/24 04/22/24 History mg tablet sennosides 8.6 mg-docusate sodium 1 tab-cap PO BID 04/22/24 04/22/24 History 50 mg tablet (2-in-1 Laxative) Allergies Allergy/AdvReac Type Severity Reaction Status Date / Time No Known Allergies Allergy Verified 04/22/24 10:35 Vital Signs Vital Signs - 24 hr 04/22/24 10:29 Temperature 97.6 F Pulse Rate 101 H Respiratory Rate 20 Blood Pressure 111/77 Pulse Oximetry 98 Oxygen Delivery Room Air Exam Narrative: Weight 42 kg BMI 14.5 Const: Other: Cachectic, appears older than stated age HENMT: Other: Head is normocephalic atraumatic, temporal wasting, dry mucous membranes, poor dentition with multiple missing teeth Eyes: Other: Positive conjunctival pallor, no scleral icterus, pupils are equal and reactive Neck: Other: Patient has hard a mobile lymph nodes in the anterior posterior cervical chain on the right, she has a tender markedly large lymph node/mass of the left anterior cervical region Resp: Other: She has coarse breath sounds throughout with frequent end-expiratory wheezing, respiratory sounds clear somewhat with cough suspected portion is due to upper airway transmission, mild tachypnea Cardio: Other: Regular rate, regular rhythm, 2+ bilateral radial pedal pulses, no JVD GI: Other: G-tube present, abdomen is soft, nontender, nondistended, normoactive bowel sounds Skin: Other: No jaundice, no pallor Neuro: Other: Alert but falls asleep easily, oriented x4 when appropriately awake, no facial asymmetry, cranial nerves 2-12 appear to be grossly intact, no localizing neurologic deficits noted during the course of conversation Extrem: Other: Postoperative changes to the left tibia and ankle area, scar over the top of the right knee consistent with patient's history of prior patella repair after fracture, no clubbing, no cyanosis, no edema Psych: Other: Initially lethargic, then became anxious and restless once awake, poor historian, poor judgment and insight H&P: Results Labs Labs: Laboratory Tests 04/22/24 12:05 04/22/24 12:05 04/22/24 04/22/24 04/22/24 11:47 12:05 12:28 WBC 11.3 H RBC 4.12 L Hgb 9.8 L Hct 32.0 L MCV 77.7 L MCH 23.8 L MCHC 30.6 L RDW 17.3 H Plt Count 507 H MPV 9.1 Immature Gran % (Auto) 0.5 Neut % (Auto) 81.4 H Lymph % (Auto) 10.5 L [place] % (Auto) 7.3 Eos % (Auto) 0.0 Baso % (Auto) 0.3 Lymph # (Auto) 1.19 [place] # (Auto) 0.8 H Eos # (Auto) 0.0 Baso # (Auto) 0.0 Abs Immat Gran (auto) 0.06 H Absolute Neuts (auto) 9.2 H Absolute Nucleated RBC 0.000 Nucleated RBC % 0.0 PT 14.4 INR 1.1 APTT 27.8 Sodium 139 Potassium 3.7 Chloride 100 Carbon Dioxide 29 Anion Gap 10 BUN 14 Creatinine 0.43 L Estim Creat Clear Calc 78 Estimated GFR > 60 Glucose 96 POC Capillary Glucose 89 Lactic Acid 1.0 Calcium 9.8 Total Bilirubin 0.4 AST 25 ALT 23 Alkaline Phosphatase 120 Total Protein 8.0 Albumin 3.6 Influenza A (RT-PCR) Negative Influenza B (RT-PCR) Negative RSV (RT-PCR) Negative SARS-CoV-2 RNA (RT-PCR) Negative Impressions Soft Tissue Neck CT 04/22/24 12:46 IMPRESSION: Asymmetry within the subglottic larynx, to the left of midline with a 19 mm rim-enhancing fluid collection for which an abscess (versus a necrotic lymph node) is suspected. All imaging and EKGs personally reviewed and interpreted. And unless stated otherwise agree with radiologic and cardiology interpretation. Assessment and Plan Assessment and plan (1) Subglottic abscess: Code(s): J38.7 - Other diseases of larynx Status: Acute (2) Primary squamous cell carcinoma of throat: Code(s): C14.0 - Malignant neoplasm of pharynx, unspecified Status: Acute (3) Severe protein-calorie malnutrition: Code(s): E43 - Unspecified severe protein-calorie malnutrition Status: Acute Plan Patient has subglottic abscess versus necrotic lymph node. She does have some leukocytosis but is currently afebrile. Patient been started on empiric antibiotic therapy with Zosyn. Kidney she was mildly tachycardic in at ER and received 1 L IV fluid bolus and was started on maintenance fluids. Will provide p.r.n. pain medications with combination of ibuprofen, patient's home Percocet and Dilaudid. Patient's case was discussed with ENT by ER provider. Dr. Diaz from ENT felt he did not need to be consulted. Will change the patient's diet to a clear liquid to a.c. however response to antibiotics and treatment proceeds. Dr. Oliver from Oncology has been consulted. 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 Will re-consult ENT. Patient is having significant wheezing and does have significant history of tobacco abuse. Will provide nicotine patch and will place patient on scheduled nebulizer treatments Q 6 hours and will provide Acapella to provide good pulmonary toilet. However to single-view chest x-ray which was reviewed demonstrated hyperinflation with chronic findings no localizing infiltrate noted at the time of my evaluation, radiologic interpretation pending. We do not have the tube feeds that the patient takes at home. Will consult dietitian for further recommendations. Patient has been admitted as observation status. Quality VTE Prophylaxis VTE prophylaxis: pharmacologic ordered (Lovenox 40 mg subQ daily.) Hospitalist [facility] Advance Care Plan I have confirmed that the patient's Advanced Care Plan is present, code status is documented, or surrogate decision maker is listed in patient medical record.: Yes Medication Reconciliation I have utilized all available resources to obtain, update and review the patients current medications (includes all prescriptions, OTC, herbals, cannabis, and nutritional supplements).: Yes
[2024-04-22 21:07] VITALS: BP 115/83; PULSE 100; RESP 17; O2SAT 98
[2024-04-22 22:08] VITALS: BP 115/83; PULSE 100; RESP 17; O2SAT 98
[2024-04-22 22:19] VITALS: BMI 14.6
[2024-04-22 22:20] VITALS: BP 114/72; PULSE 92; RESP 21; TEMP 36.5; O2SAT 99
--- NOTE | 2024-04-22 22:20 | ADMGEN ---
This patient, Dara You, was admitted to IMU Room 203-01. Patient/family oriented to hospital policies and general routines including ID bracelet, bed and alarms, visiting hours, pain management, procedures, bathroom and other care routines, personal items, smoking policy, room service/diet, and visiting hours. Information on how to activate the Rapid Response Team has been discussed. Patient/Family are encouraged to report perceived risks to care and to ask questions if they do not understand what they are told or what they should do.
[2024-04-22] MEDS: PIPERACILLIN/TAZ 4.5G/NS 100ML 4.5 GM/100 ML BAG IVPB (23:10)
--- NOTE | 2024-04-22 23:42 | PC.NURSE ---
Patient states they use nutren 1.5 kcal/mL four times a day through their g tube at home. Dr. Lam notified. Dietary consulted to replace while at hospital
[2024-04-22 23:48] VITALS: BP 123/73; PULSE 80; RESP 24; TEMP 36.6; O2SAT 100
[2024-04-22] MEDS: IBUPROFEN 600 MG TABLET PO (23:51)
[2024-04-23] VITALS (22 sets, daily range): BP systolic 106–118; BP diastolic 69–83; PULSE 77–96; RESP 16–22; TEMP 36.4–37; O2SAT 92–100; BMI 14.6
[2024-04-23] MEDS: LACTATED RINGERS 1,000 ML 125 ML IV CONT ×2 (03:58→11:18)
[2024-04-23] MEDS: oxyCODONE/ACETAMINOPHEN (*CRX) 10-325 MG TABLET 1 TAB PO ×2 (04:04→11:19)
[2024-04-23] MEDS: ONDANSETRON INJ 4 MG/2 ML VIAL IV PUSH (04:04)
[2024-04-23 05:23] LABS: Basophils Percent Auto 0.2 % (0.2-1.2); Eosinophils Percent Auto 0.1 % (0-4.4); Hematocrit 29.5 % (37.0-47.0); Immature Granulocyte Absolute 0.05 K/mm3 (0.00-0.031); Immature Granulocyte Percent A 0.4 % (0-0.5); Lymphocytes Absolute Auto 0.86 K/mm3 (0.9-3.2); Lymphocytes Percent Auto 7.1 % (18.3-44.2); Mean Corpuscular HGB Conc 30.5 g/dl (32-36); Mean Corpuscular Hemoglobin 23.9 pg (26-34); Mean Corpuscular Volume 78.5 fl (80-100); Monocytes Absolute Auto 0.5 K/mm3 (0.1-0.6); Monocytes Percent Auto 4.4 % (2.6-8.5); Neutrophils Absolute Auto 10.7 K/mm3 (1.3-6.7); Neutrophils Percent Auto 87.8 % (45.5-73.1); Platelet Count Result 488 k/mm3 (150-375); Red Blood Count 3.76 M/mm3 (4.2-5.4); Red Cell Distribution Width 17.2 % (11.5-14.5); White Blood Count 12.1 K/mm3 (4.5-10.0)
[2024-04-23 05:46] LABS: Anion Gap 7 mmol/L (4-12); Blood Urea Nitrogen 8 mg/dL (7-17); Calcium 9.2 mg/dL (8.4-10.2); Carbon Dioxide 28 mmol/L (22-30); Chloride 103 mmol/L (98-107); Estimated CRCL calculation 82 ml/min; Estimated Glomerular Filt Rate > 60; Glucose 81 mg/dL (65-110); Potassium 3.8 mmol/L (3.4-5.0); Sodium 138 mmol/L (137-145)
[2024-04-23] MEDS: PIPERACILLIN/TAZ 4.5G/NS 100ML 4.5 GM/100 ML BAG IVPB ×4 (06:17→23:12)
[2024-04-23] MEDS: IPRATROPIUM 0.5 MG/ALBUTEROL SULFATE 2.5 MG AMPUL.NEB 3 ML INHALATION ×3 (07:07→20:08)
[2024-04-23] MEDS: NICOTINE (*PBKC) 21 MG PATCH 1 PATCH TRANSDERM (09:47)
[2024-04-23] MEDS: ENOXAPARIN 40 MG/0.4 ML SYRINGE SUB-Q (09:48)
[2024-04-23] MEDS: polyethylene glycoL 3350 17 GM POWD.PACK FEED TUBE (09:49)
[2024-04-23] MEDS: SENNA/DOCUSATE SODIUM TABLET 1 TAB PO (09:49)
--- NOTE | 2024-04-23 09:51 | PCSTNOTE ---
Please refer to the Bedside Swallow Evaluation in the EMR. Please note, silent aspiration cannot be ruled out at bedside.
--- NOTE | 2024-04-23 12:25 | P.PNIM_ITS ---
Progress Note: A&P Assessment and Plan (1) Subglottic abscess: Code(s): J38.7 - Other diseases of larynx Status: Acute Assessment and Plan: Patient has subglottic abscess versus necrotic lymph node. She does have some leukocytosis but is currently afebrile. Patient been started on empiric antibiotic therapy with Zosyn. Kidney she was mildly tachycardic in at ER and received 1 L IV fluid bolus and was started on maintenance fluids. Will provide p.r.n. pain medications with combination of ibuprofen, patient's home Percocet and Dilaudid. Patient's case was discussed with ENT by ER provider. Dr. Diaz from ENT felt he did not need to be consulted. Will change the patient's diet to a clear liquid to a.c. however response to antibiotics and treatment proceeds. Dr. Oliver from Oncology has been consulted. 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 Will re-consult ENT. Continue iv zosyn, trend labs, watch swallow and sats in hospital (2) Primary squamous cell carcinoma of throat: Code(s): C14.0 - Malignant neoplasm of pharynx, unspecified Status: Acute Assessment and Plan: consult DR Oliver (3) Severe protein-calorie malnutrition: Code(s): E43 - Unspecified severe protein-calorie malnutrition Status: Acute Assessment and Plan: Nutritional consult Subjective Date/time seen: 04/23/24 12:25 Interval history: 58-year-old female with a past medical history of squamous cell carcinoma of and severe protein calorie malnutrition who presented to the ER via EMS from home due to difficulty swallowing and increased left-sided throat pain. The patient was just discharged from [facility] within the last couple of weeks. Time frame is uncertain as the patient is a poor historian. Is unclear the patient has primary squamous cell carcinoma of the head and neck or if she has lung cancer with metastases to the head neck. She provides variable history. She was diagnosed with cancer in February when she went in for difficulty swallowing and sore throat. She notes that she has had chronic lymph nodes in the right side of her neck since then. However in the last 24 hours she had developed severe tenderness and large area of swelling in her left neck. She denies any ill contacts. She reports increased sore throat and marked difficulty swallowing. She reports that she usually has a chronic cough with clear mucus production. But over more recent time frame she has developed some tannish to brownish sputum production. She does have a history of chronic tobacco use and used to smoke 2 packs per day but since her cancer diagnosis has cut down to 3 or 4 cigarettes a day. Unfortunately she is still also smoking crack cocaine to help ?mask her pain?. She states that she started doing that to treat pain since nobody was given her pain medications. Pt admitted with subglottic abscess history of squamous cell neoplasm of pharynx and protein calorie malnutrition. Review of Systems Review of Systems: Pt complains of throat pain Exam Const: Other: Cachectic, appears older than stated age Eyes: Other: pupils are reactive Neck: Other: Patient has hard a mobile lymph nodes in the anterior posterior cervical chain on the right, she has a tender markedly large lymph node/mass of the left anterior cervical region Resp: Other: lungs are clear Cardio: Other: Regular rate, regular rhythm, 2+ bilateral radial pedal pulses, no JVD GI: Other: G-tube present, abdomen is soft, nontender, nondistended, normoactive bowel sounds Skin: Other: No jaundice, no pallor Neuro: Other: Alert but falls asleep easily, oriented x4 when appropriately awake, no facial asymmetry, cranial nerves 2-12 appear to be grossly intact, no localizing neurologic deficits noted during the course of conversation Extrem: Other: Postoperative changes to the left tibia and ankle area, scar over the top of the right knee consistent with patient's history of prior patella repair after fracture, no clubbing, no cyanosis, no edema Psych: Other: Initially lethargic, then became anxious and restless once awake, poor historian, poor judgment and insight Objective Data Vital Signs Vital Signs: Vital Signs - 24 hr 04/22/24 19:04 04/22/24 21:07 04/22/24 22:08 Temperature Pulse Rate 98 100 100 Respiratory Rate 21 H 17 17 Blood Pressure 117/80 115/83 115/83 Pulse Oximetry 99 98 98 Oxygen Delivery 04/22/24 22:20 04/22/24 22:20 04/22/24 23:28 Temperature 36.5 C Pulse Rate 92 Respiratory Rate 21 H Blood Pressure 114/72 Pulse Oximetry 99 Oxygen Delivery Room Air Room Air 04/22/24 23:48 04/23/24 00:00 04/23/24 02:00 Temperature 36.6 C Pulse Rate 80 86 88 Respiratory Rate 24 H Blood Pressure 123/73 Pulse Oximetry 100 Oxygen Delivery 04/23/24 04:00 04/23/24 04:00 04/23/24 04:00 Temperature 36.4 C Pulse Rate 87 91 Respiratory Rate 18 Blood Pressure 116/69 Pulse Oximetry 100 Oxygen Delivery Room Air 04/23/24 05:51 04/23/24 07:06 04/23/24 07:06 Temperature Pulse Rate 82 77 77 Respiratory Rate 18 18 Blood Pressure Pulse Oximetry 95 Oxygen Delivery Room Air 04/23/24 07:16 04/23/24 07:42 Temperature 36.4 C L Pulse Rate 78 87 Respiratory Rate 18 16 Blood Pressure 115/72 Pulse Oximetry 100 Oxygen Delivery Intake/Output Intake/Output: Intake & Output 04/20/24 04/21/24 04/22/24 04/23/24 23:59 23:59 23:59 23:59 Intake Total 1150 2266.7 Output Total 1000 Balance 1150 1266.7 Meds/Results Medications: Active Medications Generic Name Dose Route Start Last Admin Trade Name Freq PRN Reason Stop Dose Admin Al Hydrox/Mg Hydrox/Simethicone 30 ml 04/22/24 20:06 Mag Hydrox/Al Hydrox/Simeth 30 Ml Udc PO Q6H PRN Indigestion Albuterol/Ipratropium 3 ml 04/23/24 08:00 04/23/24 07:07 Ipratropium 0.5 Mg/Albuterol Sulfate 2.5 Mg Ampul.Neb 3 Ml INHALATION 3 ml Q6HRT KIARA Administration Enoxaparin Sodium 40 mg 04/23/24 09:00 04/23/24 09:48 Enoxaparin 40 Mg/0.4 Ml Syringe SUB-Q 40 mg DAILY KIARA Administration Hydromorphone HCl 0.5 mg 04/22/24 15:50 04/22/24 20:24 Hydromorphone Hcl Inj (*Crx) 1 Mg/Ml Syr IV PUSH 0.5 mg Q4HR PRN Administration Pain Lactated Ringer's 1,000 mls @ 125 mls/hr 04/22/24 16:10 04/23/24 11:18 Lr - Lactated Ringers Iv IV CONT 125 mls/hr .Q8H KIARA Administration Piperacillin Sod/Tazobactam Sod 4.5 gm in 100 mls @ 200 mls/hr 04/23/24 06:00 04/23/24 11:17 Zosyn 4.5 Gm/Ns 100 Ml IVPB 200 mls/hr Q6H KIARA Administration Ibuprofen 600 mg 04/22/24 20:06 04/22/24 23:51 Ibuprofen 600 Mg Tablet PO 600 mg Q6H PRN Administration Pain Rated 1-3 or fever Nicotine 1 patch 04/23/24 09:00 04/23/24 09:47 Nicotine (*Pbkc) 21 Mg Patch TRANSDERM 1 patch DAILY KIARA Administration Ondansetron HCl 4 mg 04/22/24 20:06 04/23/24 04:04 Ondansetron Inj 4 Mg/2 Ml Vial IV PUSH 4 mg Q6H PRN Administration Nausea And Vomiting Oxycodone/Acetaminophen 1 tab 04/22/24 20:06 04/23/24 11:19 Oxycodone/Acetaminophen (*Crx) 10-325 Mg Tablet PO 1 tab Q4H PRN Administration Pain Rated 4-6 Phenol 1 spray 04/22/24 20:06 Phenol/Sod Pheno [place] (*Bkc) MUCOUS MEM PRN PRN Sore Throat Polyethylene Glycol 17 gm 04/23/24 09:00 04/23/24 09:49 Polyethylene Glycol 3350 17 Gm Powd.Pack FEED TUBE 17 gm QAM KIARA Administration Senna/Docusate Sodium 1 tab 04/23/24 09:00 04/23/24 09:49 Senna/Docusate Sodium Tablet PO 1 tab BID KIARA Administration Radiology Results: ITS Impressions Soft Tissue Neck CT 04/22/24 12:46 IMPRESSION: Asymmetry within the subglottic larynx, to the left of midline with a 19 mm rim- enhancing fluid collection for which an abscess (versus a necrotic lymph node) is suspected. Chest X-Ray 04/23/24 05:50 Impression: Clear lungs. Possible COPD. Labs Labs: Laboratory Results - last 24 hr 04/22/24 04/22/24 04/23/24 12:05 12:28 04:36 WBC 12.1 H RBC 3.76 L Hgb 9.0 L Hct 29.5 L MCV 78.5 L MCH 23.9 L MCHC 30.5 L RDW 17.2 H Plt Count 488 H MPV 10.0 Immature Gran % (Auto) 0.4 Neut % (Auto) 87.8 H Lymph % (Auto) 7.1 L [place] % (Auto) 4.4 Eos % (Auto) 0.1 Baso % (Auto) 0.2 Lymph # (Auto) 0.86 L [place] # (Auto) 0.5 Eos # (Auto) 0.0 Baso # (Auto) 0.0 Abs Immat Gran (auto) 0.05 H Absolute Neuts (auto) 10.7 H Absolute Nucleated RBC 0.000 Nucleated RBC % 0.0 PT 14.4 INR 1.1 APTT 27.8 Sodium 138 Potassium 3.8 Chloride 103 Carbon Dioxide 28 Anion Gap 7 BUN 8 D Creatinine 0.41 L Estim Creat Clear Calc 82 Estimated GFR > 60 Glucose 81 Lactic Acid 1.0 Calcium 9.2 Influenza A (RT-PCR) Negative Influenza B (RT-PCR) Negative RSV (RT-PCR) Negative SARS-CoV-2 RNA (RT-PCR) Negative
[2024-04-23 13:26] LABS: Phosphorus 3.9 mg/dL (2.5-4.5)
--- NOTE | 2024-04-23 13:28 | PCDIET ---
TUBE FEEDING RECOMMENDATION: Osmolite 1.5 @ 20 ml/h. Advance to 45 ml/h goal rate by 10 ml q 4 hours as tolerated. Flush 125 ml water q 4 hours.
[2024-04-23] MEDS: HYDROmorphone HCL INJ (*CRX) 1 MG/ML SYR 0.5 MG IV PUSH ×2 (17:55→23:05)
--- NOTE | 2024-04-23 19:25 | WPDONCCN ---
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 Patient has already been evaluated by Radiation Oncology. Based on NCCN guideline she will be a good candidate for concurrent chemoradiation therapy cisplatin on every 3 weeks basis. She would require PET scan for completion of the staging that will be performed as an outpatient I will see her in the office to start treatment hopefully as soon as after the PET scan is done. I have provided her my office information. She should resume PEG tube feeding for nutrition after the barium swallow test ordered for tomorrow morning. Regarding her anemia I will check nutritional panel and will recommend replacement of therapy based on the lab results. HPI Data of Consult Date/Time: 04/23/24 19:25 Requesting Physician: Josephine Hinson MD Primary Care Provider: SENIOR DYNAMICS CRM DEVELOPER PHYSICIAN Consult Narrative Narrative: Dara You is a 58 year old female with recent diagnosis of T3 and 2 locally advanced hypopharyngeal carcinoma stage III disease. Patient came into the hospital due to difficulty swallowing and increased left-sided throat pain. She was recently discharged from the [facility] on April 15 and has been getting tube feeding at home. She has lost almost 60 lb weight since the diagnosis of throat cancer. CT scan of the soft tissue neck showed asymmetry within the subglottic larynx to the left midline with 19 mm enhancing fluid collection for which abscess versus necrotic lymph node was suspected. Labs showed slightly elevated WBC count of 12.1 with hemoglobin of 9 and platelet of [id number]. Creatinine was normal. Review of Systems Review of Systems: Review of system as per HPI otherwise negative [facility] Past Medical History Medical History (Updated 04/22/24 @ 20:42 by Starr Lam DO) Severe protein-calorie malnutrition Primary squamous cell carcinoma of throat Surgical History Surgical History (Updated 04/22/24 @ 20:40 by Starr Lam DO) Status post insertion of percutaneous endoscopic gastrostomy (PEG) tube Family History Family History (Updated 04/22/24 @ 22:25 by Kelle Yoon RN) Mother Lung cancer Social History Social History (Updated 04/23/24 @ 02:48 by Starr Lam DO) Social History: The patient reports that she has lived with a friend since a roommate abandoned her in February in left err homeless. She states that she raised 4 children. She has been on disability since 2021 after she required extensive reconstruction of her lower extremity after a fall. She has smoked up to 2 packs of cigarettes per day but recently cut down to 3-4 cigarettes a day after her cancer diagnosis. She does smoke marijuana frequently. She also smokes crack cocaine on a somewhat frequent basis. Code status: Full code Surrogate decision maker: She reports that she would want her mother to beers surrogate decision maker but the easiest person to contact would be her daughter [place]. Smoking packs per day: 2 Smoking cigarettes per day: 40.0 Years smoked: 40 Smoking pack-years: 80.00 Smoking status: Current every day smoker Tobacco type: cigarettes Alcohol intake: never Substance use: current Substance use type: marijuana and crack/cocaine Last use: 04/21/2024 Do You Feel Safe in your Home?: Yes Lack of Transportation: YES Lack of Food: Sometimes True Current Housing: I Do Not Have Housing Concerned About Future Housing: YES Difficulty Paying Gas/Electric Bills: YES Difficulty Paying for Meds: YES Currently Unemployed: No Education: Grade School Difficulty w/ Childcare or Family Care: No Spiritual care concerns: No Meds Home Medications and Allergies Home Medications ?Medication ?Instructions ?Recorded ?Confirmed ?Type nicotine 21 mg/24 hr daily 1 patch transdermal DAILY 04/22/24 04/22/24 History transdermal patch oxycodone-acetaminophen 10 mg-325 1 tablet PO BID pain 04/22/24 04/22/24 History mg tablet sennosides 8.6 mg-docusate sodium 1 tab-cap PO BID 04/22/24 04/22/24 History 50 mg tablet (2-in-1 Laxative) Allergies Allergy/AdvReac Type Severity Reaction Status Date / Time No Known Allergies Allergy Verified 04/22/24 10:35 Vital Signs Vital Signs - 24 hr 04/22/24 21:07 04/22/24 22:08 04/22/24 22:20 Temperature 36.5 C Pulse Rate 100 100 92 Respiratory Rate 17 17 21 H Blood Pressure 115/83 115/83 114/72 Pulse Oximetry 98 98 99 Oxygen Delivery 04/22/24 22:20 04/22/24 23:28 04/22/24 23:48 Temperature 36.6 C Pulse Rate 80 Respiratory Rate 24 H Blood Pressure 123/73 Pulse Oximetry 100 Oxygen Delivery Room Air Room Air 04/23/24 00:00 04/23/24 02:00 04/23/24 04:00 Temperature Pulse Rate 86 88 Respiratory Rate Blood Pressure Pulse Oximetry Oxygen Delivery Room Air 04/23/24 04:00 04/23/24 04:00 04/23/24 05:51 Temperature 36.4 C Pulse Rate 87 91 82 Respiratory Rate 18 Blood Pressure 116/69 Pulse Oximetry 100 Oxygen Delivery 04/23/24 07:06 04/23/24 07:06 04/23/24 07:16 Temperature Pulse Rate 77 77 78 Respiratory Rate 18 18 18 Blood Pressure Pulse Oximetry 95 Oxygen Delivery Room Air 04/23/24 07:42 04/23/24 08:00 04/23/24 10:00 Temperature 36.4 C L Pulse Rate 87 78 85 Respiratory Rate 16 Blood Pressure 115/72 Pulse Oximetry 100 Oxygen Delivery 04/23/24 12:00 04/23/24 12:07 04/23/24 12:50 Temperature 36.6 C Pulse Rate 89 78 77 Respiratory Rate 18 18 Blood Pressure 106/77 Pulse Oximetry 92 Oxygen Delivery 04/23/24 13:00 04/23/24 14:00 04/23/24 15:43 Temperature 36.5 C Pulse Rate 79 82 87 Respiratory Rate 18 22 H Blood Pressure 117/70 Pulse Oximetry 92 Oxygen Delivery 04/23/24 16:00 04/23/24 18:00 Temperature Pulse Rate 84 86 Respiratory Rate Blood Pressure Pulse Oximetry Oxygen Delivery Exam Narrative: Lungs are clear to auscultation bilaterally Bilateral neck lymphadenopathy noted Cardiovascular regular rate rhythm no murmurs Abdomen soft nontender nondistended, peg tube noted Extremities no edema Results Labs 04/23/24 04:36 04/23/24 04:36 Labs: Short CBC 04/23/24 Range/Units 04:36 WBC 12.1 H (4.5-10.0) K/mm3 Hgb 9.0 L (12.0-15.0) g/dL Hct 29.5 L (37.0-47.0) % Plt Count 488 H (150-375) k/mm3 BMP 04/23/24 04:36 Sodium 138 Potassium 3.8 Chloride 103 Carbon Dioxide 28 BUN 8 D Creatinine 0.41 L Glucose 81 Calcium 9.2
[2024-04-23 20:18] LABS: Iron 11 ug/dL (37-170)
[2024-04-23 20:28] LABS: Percent Iron Saturation 5 % (20-50)
[2024-04-23 21:26] LABS: Folic Acid 6.3 ng/mL (2.76->20)
[2024-04-24] VITALS (22 sets, daily range): BP systolic 115–132; BP diastolic 66–80; PULSE 64–112; RESP 16–24; TEMP 36.3–36.9; O2SAT 92–98; BMI 15.2
[2024-04-24] MEDS: IPRATROPIUM 0.5 MG/ALBUTEROL SULFATE 2.5 MG AMPUL.NEB 3 ML INHALATION ×4 (02:31→20:46)
[2024-04-24] MEDS: LACTATED RINGERS 1,000 ML 125 ML IV CONT (03:27)
[2024-04-24 05:31] LABS: Anion Gap 9 mmol/L (4-12); Blood Urea Nitrogen 7 mg/dL (7-17); Carbon Dioxide 26 mmol/L (22-30); Chloride 103 mmol/L (98-107); Estimated CRCL calculation 79 ml/min; Estimated Glomerular Filt Rate > 60; Glucose 68 mg/dL (65-110); Phosphorus 3.9 mg/dL (2.5-4.5); Potassium 3.8 mmol/L (3.4-5.0); Sodium 138 mmol/L (137-145)
[2024-04-24] MEDS: PIPERACILLIN/TAZ 4.5G/NS 100ML 4.5 GM/100 ML BAG IVPB ×3 (06:00→17:56)
[2024-04-24] MEDS: HYDROmorphone HCL INJ (*CRX) 1 MG/ML SYR 0.5 MG IV PUSH ×3 (06:06→20:31)
[2024-04-24] MEDS: PHENOL/SOD PHENO SPRAY CHERRY (*BKC) 1 SPRAY MUCOUS MEM (06:06)
[2024-04-24 07:16] LABS: Hematocrit 29.7 % (37.0-47.0); Hemoglobin 8.8 g/dL (12.0-15.0); Mean Corpuscular HGB Conc 29.6 g/dl (32-36); Mean Corpuscular Hemoglobin 23.5 pg (26-34); Mean Corpuscular Volume 79.2 fl (80-100); Mean Platelet Volume 9.2 fl (7.4-10.4); Platelet Count Result 466 k/mm3 (150-375); Red Blood Count 3.75 M/mm3 (4.2-5.4); Red Cell Distribution Width 17.2 % (11.5-14.5)
[2024-04-24 08:20] LABS: Glucose Point of Care 67 mg/dl (65-105)
[2024-04-24] MEDS: DEXTROSE 50% 25 GM/50 ML SYRINGE IV PUSH (08:35)
[2024-04-24] MEDS: ENOXAPARIN 40 MG/0.4 ML SYRINGE SUB-Q (08:39)
--- NOTE | 2024-04-24 08:46 | P.PNIM_ITS ---
Progress Note: A&P Assessment and Plan (1) Subglottic abscess: Code(s): J38.7 - Other diseases of larynx Status: Acute Assessment and Plan: Patient has subglottic abscess versus necrotic lymph node. She does have some leukocytosis but is currently afebrile. Patient been started on empiric antibiotic therapy with Zosyn. Kidney she was mildly tachycardic in at ER and received 1 L IV fluid bolus and was started on maintenance fluids. Will provide p.r.n. pain medications with combination of ibuprofen, patient's home Percocet and Dilaudid. Patient's case was discussed with ENT by ER provider. Dr. Diaz from ENT felt he did not need to be consulted. Continue IV antibiotics as ordered. Dr. Oliver from Oncology has been consulted. 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 Not sure if ENT comes here Continue iv zosyn, trend labs,She failed her swallow evaluation will be nothing by mouth and will continue on tube feeds (2) Primary squamous cell carcinoma of throat: Code(s): C14.0 - Malignant neoplasm of pharynx, unspecified Status: Acute Assessment and Plan: consult DR Oliver (3) Severe protein-calorie malnutrition: Code(s): E43 - Unspecified severe protein-calorie malnutrition Status: Acute Assessment and Plan: Nutritional consult Plan Failed swallow evaluation with dysphagia continue only on tube feeds Subjective Date/time seen: 04/24/24 08:46 Interval history: 58-year-old female with a past medical history of squamous cell carcinoma of and severe protein calorie malnutrition who presented to the ER via EMS from home due to difficulty swallowing and increased left-sided throat pain. The patient was just discharged from [facility] within the last couple of weeks. Time frame is uncertain as the patient is a poor historian. Is unclear the patient has primary squamous cell carcinoma of the head and neck or if she has lung cancer with metastases to the head neck. She provides variable history. She was diagnosed with cancer in February when she went in for difficulty swallowing and sore throat. She notes that she has had chronic lymph nodes in the right side of her neck since then. However in the last 24 hours she had developed severe tenderness and large area of swelling in her left neck. She denies any ill contacts. She reports increased sore throat and marked difficulty swallowing. She reports that she usually has a chronic cough with clear mucus production. But over more recent time frame she has developed some tannish to brownish sputum production. She does have a history of chronic tobacco use and used to smoke 2 packs per day but since her cancer diagnosis has cut down to 3 or 4 cigarettes a day. Unfortunately she is still also smoking crack cocaine to help ?mask her pain?. She states that she started doing that to treat pain since nobody was given her pain medications. Pt admitted withLeft subglottic abscess history of squamous cell neoplasm of pharynx and protein calorie malnutrition. She is supposed to go for a swallow evaluation today. Review of Systems Review of Systems: All systems reviewed & are unremarkable except as noted in HPI and below Exam Narrative: APPEARANCE: Well appearing, no pain, no distress, well-nourished. HEAD: normocephalic, atraumatic. EYES: PERRLA/EOMI, conjunctivae clear. NOSE: Normal no drainage THROAT: Left-sided neck massNoted NECK: Supple. No adenopathy, no masses. RESPIRATORY: Airway patent, respirations nonlabored. Clear to auscultation bilaterally, no rales, rhonchi, wheezing. CARDIOVASCULAR: Regular rate and rhythm without murmurs rubs or gallops. ABDOMINAL: Soft, nontender, nondistended, normal bowel sounds MUSCULOSKELETAL: Moves all extremities. Strength/ROM intact, No edema, No calf tenderness. NEURO: Alert. Cranial nerves II through XII intact. Good gait. Good coordination SKIN: Warm, dry. Normal Color Objective Data Vital Signs Vital Signs: Vital Signs - 24 hr 04/23/24 10:00 04/23/24 12:00 04/23/24 12:07 Temperature 98 F Pulse Rate 85 89 78 Respiratory Rate 18 Blood Pressure 106/77 Pulse Oximetry 92 Oxygen Delivery 04/23/24 12:50 04/23/24 13:00 04/23/24 14:00 Temperature Pulse Rate 77 79 82 Respiratory Rate 18 18 Blood Pressure Pulse Oximetry Oxygen Delivery 04/23/24 15:43 04/23/24 16:00 04/23/24 18:00 Temperature 97.7 F Pulse Rate 87 84 86 Respiratory Rate 22 H Blood Pressure 117/70 Pulse Oximetry 92 Oxygen Delivery 04/23/24 20:00 04/23/24 20:00 04/23/24 20:09 Temperature 98.6 F Pulse Rate 96 96 84 Respiratory Rate 20 18 Blood Pressure 118/83 Pulse Oximetry 97 Oxygen Delivery 04/23/24 20:16 04/23/24 20:20 04/23/24 22:00 Temperature Pulse Rate 80 92 Respiratory Rate 18 Blood Pressure Pulse Oximetry 95 Oxygen Delivery Room Air 04/24/24 00:00 04/24/24 00:00 04/24/24 02:30 Temperature 97.4 F L Pulse Rate 84 71 83 Respiratory Rate 16 Blood Pressure 115/74 Pulse Oximetry 92 Oxygen Delivery 04/24/24 02:33 04/24/24 02:39 04/24/24 04:00 Temperature Pulse Rate 75 82 83 Respiratory Rate 18 18 Blood Pressure Pulse Oximetry Oxygen Delivery 04/24/24 04:00 04/24/24 06:00 04/24/24 07:53 Temperature 97.8 F 97.6 F Pulse Rate 76 76 65 Respiratory Rate 16 20 Blood Pressure 121/80 121/66 Pulse Oximetry 97 95 Oxygen Delivery 04/24/24 08:09 04/24/24 08:09 04/24/24 08:21 Temperature Pulse Rate 75 74 Respiratory Rate 20 18 Blood Pressure Pulse Oximetry 92 Oxygen Delivery Room Air Intake/Output Intake/Output: Intake & Output 04/21/24 04/22/24 04/23/24 04/24/24 23:59 23:59 23:59 23:59 Intake Total 1150 3566.7 60 Output Total 1400 400 Balance 1150 2166.7 -340 Meds/Results Medications: Active Medications Generic Name Dose Route Start Last Admin Trade Name Freq PRN Reason Stop Dose Admin Al Hydrox/Mg Hydrox/Simethicone 30 ml 04/22/24 20:06 Mag Hydrox/Al Hydrox/Simeth 30 Ml Udc PO Q6H PRN Indigestion Albuterol/Ipratropium 3 ml 04/23/24 08:00 04/24/24 08:09 Ipratropium 0.5 Mg/Albuterol Sulfate 2.5 Mg Ampul.Neb 3 Ml INHALATION 3 ml Q6HRT KIARA Administration Dextrose 12.5 gm 04/24/24 08:22 04/24/24 08:35 Dextrose 50% 25 Gm/50 Ml Syringe IV PUSH 12.5 gm PRN PRN Administration Hypoglycemia Protocol Enoxaparin Sodium 40 mg 04/23/24 09:00 04/24/24 08:39 Enoxaparin 40 Mg/0.4 Ml Syringe SUB-Q 40 mg DAILY KIARA Administration Glucagon 1 mg 04/24/24 08:22 Glucagon For Inj 1 Mg Vial IM PRN PRN Hypoglycemia Protocol Glucose 15 gm 04/24/24 08:22 Glucose Oral Gel 15 Gm Of Glucse In 37.5 Gm Tube PO PRN PRN Hypoglycemia Protocol Hydromorphone HCl 0.5 mg 04/22/24 15:50 04/24/24 06:06 Hydromorphone Hcl Inj (*Crx) 1 Mg/Ml Syr IV PUSH 0.5 mg Q4HR PRN Administration Pain Lactated Ringer's 1,000 mls @ 125 mls/hr 04/22/24 16:10 04/24/24 03:27 Lr - Lactated Ringers Iv IV CONT 125 mls/hr .Q8H KIARA Administration Piperacillin Sod/Tazobactam Sod 4.5 gm in 100 mls @ 200 mls/hr 04/23/24 06:00 04/24/24 06:00 Zosyn 4.5 Gm/Ns 100 Ml IVPB 200 mls/hr Q6H KIARA Administration Dextrose 1,000 mls @ 100 mls/hr 04/24/24 08:22 Dextrose 5% 1,000 Ml IVPB PRN PRN Hypoglycemia Protocol Ibuprofen 600 mg 04/22/24 20:06 04/22/24 23:51 Ibuprofen 600 Mg Tablet PO 600 mg Q6H PRN Administration Pain Rated 1-3 or fever Nicotine 1 patch 04/23/24 09:00 04/23/24 09:47 Nicotine (*Pbkc) 21 Mg Patch TRANSDERM 1 patch DAILY KIARA Administration Ondansetron HCl 4 mg 04/22/24 20:06 04/23/24 04:04 Ondansetron Inj 4 Mg/2 Ml Vial IV PUSH 4 mg Q6H PRN Administration Nausea And Vomiting Oxycodone/Acetaminophen 1 tab 04/22/24 20:06 04/23/24 11:19 Oxycodone/Acetaminophen (*Crx) 10-325 Mg Tablet PO 1 tab Q4H PRN Administration Pain Rated 4-6 Phenol 1 spray 04/22/24 20:06 04/24/24 06:06 Phenol/Sod Pheno [place] (*Bkc) MUCOUS MEM 1 spray PRN PRN Administration Sore Throat Polyethylene Glycol 17 gm 04/23/24 09:00 04/24/24 08:36 Polyethylene Glycol 3350 17 Gm Powd.Pack FEED TUBE Not Given QAM KIARA Senna/Docusate Sodium 1 tab 04/23/24 09:00 04/24/24 08:36 Senna/Docusate Sodium Tablet PO Not Given BID [facility] Radiology Results: ITS Impressions Soft Tissue Neck CT 04/22/24 12:46 IMPRESSION: Asymmetry within the subglottic larynx, to the left of midline with a 19 mm rim- enhancing fluid collection for which an abscess (versus a necrotic lymph node) is suspected. Chest X-Ray 04/23/24 05:50 Impression: Clear lungs. Possible COPD. Labs Labs: Laboratory Results - last 24 hr 04/23/24 04/23/24 04/23/24 04:32 04:36 12:05 WBC RBC Hgb Hct MCV MCH MCHC RDW Plt Count MPV Sodium Potassium Chloride Carbon Dioxide Anion Gap BUN Creatinine Estim Creat Clear Calc Estimated GFR Glucose POC Capillary Glucose Calcium Phosphorus 3.9 Iron 11 L TIBC 225 L % Saturation 5 L Ferritin 130.00 Vitamin B12 381.0 Folate 6.3 04/24/24 04/24/24 04/24/24 04:54 07:07 08:04 WBC 9.0 RBC 3.75 L Hgb 8.8 L Hct 29.7 L MCV 79.2 L MCH 23.5 L MCHC 29.6 L RDW 17.2 H Plt Count 466 H MPV 9.2 Sodium 138 Potassium 3.8 Chloride 103 Carbon Dioxide 26 Anion Gap 9 BUN 7 Creatinine 0.45 L Estim Creat Clear Calc 79 Estimated GFR > 60 Glucose 68 POC Capillary Glucose 67 Calcium 9.0 Phosphorus 3.9 Iron TIBC % Saturation Ferritin Vitamin B12 Folate
[2024-04-24] MEDS: NICOTINE (*PBKC) 21 MG PATCH 1 PATCH TRANSDERM (08:49)
[2024-04-24 08:59] LABS: Glucose Point of Care 143 mg/dl (65-105)
--- NOTE | 2024-04-24 10:10 | PCSTNOTE ---
Please refer to the Modified Barium Swallow Evaluation in the EMR.
[2024-04-24 12:06] LABS: Glucose Point of Care 83 mg/dl (65-105)
--- NOTE | 2024-04-24 17:11 | P.TS_ITS ---
Transfer Discharge Sum: Prov Provider Date of admission: 04/24/24 10:53 Primary care physician: [employer] DEPARTMENT CHAIR PHYSICIAN Admitting clinician: Josephine Hinson MD Consults: 04/22/24 Consult to Dietitian Routine Reason for Consult:: Severe protein calorie malnutrition. We do not have patient's current home g tube feeding. Consult to Physician Routine Comment: Consulting Provider: Tucker Oliver Reason for consultation: Squamous cell carcinoma Has provider been notified: Yes DS: Admitting Diagnosis Discharge Date 04/24/24 Admitting Diagnosis Subglottic abscess DS: Discharge Diagnosis Discharge Diagnosis (1) Subglottic abscess: Code(s): J38.7 - Other diseases of larynx Status: Acute (2) Primary squamous cell carcinoma of throat: Code(s): C14.0 - Malignant neoplasm of pharynx, unspecified Status: Acute (3) Severe protein-calorie malnutrition: Code(s): E43 - Unspecified severe protein-calorie malnutrition Status: Acute Transfer Discharge Sum: Med Medications Active and Home Medications: Home Medications nicotine 21 mg/24 hr daily transdermal patch 1 patch transdermal DAILY 04/22/24 [History Confirmed 04/22/24] oxycodone-acetaminophen 10 mg-325 mg tablet 1 tablet PO BID pain 04/22/24 [History Confirmed 04/22/24] sennosides 8.6 mg-docusate sodium 50 mg tablet (2-in-1 Laxative) 1 tab-cap PO BID 04/22/24 [History Confirmed 04/22/24] Transfer Discharge Sum: Hosp Hospital Course Hospital course: D Sheyla You is a 58 year old female who presented on 04/22/2024 with left neck swelling which has worsened recently. CT reveals subglottic abscess versus necrotic lymph nodes. She did have leukocytosis but no fever. Patient was empirically started on IV Zosyn. Received some IV fluid. Oncology was consulted. That neck swelling remained stable initially. Swallow evaluation was performed which she failed. She has a tube feed ongoing since March 2024. On 04/24/2024 evening she reported more shortness of breath and increased swelling for which CT chest was neck was reordered which showed increased fluid collection on left. Case was discussed with Char orta she had initial workup done however no ENT coverage was available at that time. Subsequently [facility] was contacted for transfer and was accepted there. Patient eventually got transferred under Dr. Hui for further treatment Time Spent with Patient Time attestation: Total time spent providing and/or coordinating transfer services: 60 minutes Exam Narrative: APPEARANCE: Well appearing, no pain, no distress, well-nourished. HEAD: normocephalic, atraumatic. EYES: PERRLA/EOMI, conjunctivae clear. NOSE: Normal no drainage THROAT: Left-sided neck massNoted NECK: Supple. No adenopathy, no masses. RESPIRATORY: Airway patent, respirations nonlabored. Clear to auscultation bilaterally, no rales, rhonchi, wheezing. CARDIOVASCULAR: Regular rate and rhythm without murmurs rubs or gallops. ABDOMINAL: Soft, nontender, nondistended, normal bowel sounds MUSCULOSKELETAL: Moves all extremities. Strength/ROM intact, No edema, No calf tenderness. NEURO: Alert. Cranial nerves II through XII intact. Good gait. Good coordination SKIN: Warm, dry. Normal Color DS: Data Imaging Radiologist's impression: ITS Impressions Soft Tissue Neck CT 04/22/24 12:46 IMPRESSION: Asymmetry within the subglottic larynx, to the left of midline with a 19 mm rim- enhancing fluid collection for which an abscess (versus a necrotic lymph node) is suspected. Chest X-Ray 04/23/24 05:50 Impression: Clear lungs. Possible COPD. Modified Barium Swallow 04/24/24 09:42 IMPRESSION: Significant recurrent laryngeal aspiration both during and following the swallow with thin liquid and pudding consistencies. Please correlate with speech pathologist findings and specific feeding recommendations. Neck/Chest CT 04/24/24 16:51 IMPRESSION: 1. Mass at the left side of the pharynx with soft tissue thickening the retropharyngeal soft tissues extending caudally along the left side of the esophagus which be consistent with reported primary neck cancer. 2. Interval increase in size of a now 2.9 x 1.9 x 3.2 cm gas and fluid containing lesion in the subcutaneous tissues overlying the left side of the pharynx suspicious for secondary abscess formation potential with fistulous indication the pharynx. Alternatively this could represent secondarily suppurative/necrotic metastatic lymph node. 3. Multiple enlarged bilateral cervical lymph nodes along with a 2.7 cm mass in the left hepatic lobe and sclerotic T12 vertebral body, all suspicious for metastatic disease. 4. Patchy airspace opacities in the dependent lower lobes and right middle lobe suspicious for aspiration pneumonia.
--- NOTE | 2024-04-24 17:15 | PC.NURSE ---
RN NOTIFIED MD DONALD OF CT NECK RESULTS, PATIENT'S VS, AND 2L NC APPLIED TO PATIENT. PATIENT REQUESTING OXYGEN FOR SHORTNESS OF BREATH. PATIENT MIDLY TACHYPNIC, ALERT AND ORIENTED. VANC ORDERED. ENT MD NUMBER GIVEN TO .
[2024-04-24] MEDS: MEROPENEM 1 GM/NS 100 ML 1 GM/100 ML BAG IVPB (18:39)
[2024-04-24 18:48] LABS: Glucose Point of Care 118 mg/dl (65-105)
[2024-04-24] MEDS: VANCOMYCIN 1,000 MG/NS 250 ML 1,000 MG/250 ML BAG 250 MG IVPB (19:21)
--- NOTE | 2024-04-24 19:28 | PC.NURSE ---
IMAGING SENT TO [facility]IA RADIOLOGY
[2024-04-24 20:42] LABS: MRSA (PCR) NOT DETECTED (NOT DETECTE)
--- NOTE | 2024-04-24 21:32 | PC.NURSE ---
Bed received from [facility], room [address] Hui will be the accepting physician. Report called to Lali KUMAR at [phone]
--- NOTE | 2024-04-24 23:44 | PC.NURSE ---
Patient left for [facility] via ambulance and two attendants with all belongings and no change from previous assessment
== END 2024-04-24 23:45 | disposition short-term general hospital (02) | DRG 115 ==
LOC: ANHED 11:37 → ANHIMU 16:58
PROVIDERS: Family Medicine; Internal Medicine; Internal Medicine Hematology & Oncology; Admitting Provider Hospitalist; Emergency Provider Emergency Medicine; Visit Provider Internal Medicine
DX: J38.7 Other diseases of larynx (principal); C13.9 Malignant neoplasm of hypopharynx, unspecified; E43 Unspecified severe protein-calorie malnutrition; R62.7 Adult failure to thrive; F17.210 Nicotine dependence, cigarettes, uncomplicated; D72.829 Elevated white blood cell count, unspecified; Z93.1 Gastrostomy status; Z68.1 Body mass index [BMI] 19.9 or less, adult
CPT/HCPCS: 36415; 70491; 71045; 71260; 80048; 80053; 82607; 82728; 82746; 82948; 83540; 83550; 83605; 84100; 85025; 85027; 85610; 85730; 87040; 87637; 87641; 92610; 92611; 94640; 94667; 94668; 96361; 96365; 96372; 96374; 96375; 96376; 99285; A9270; G0378; G0379; J1171; J1650; J2185; J2405; J2543; J3370; J7030; J7120; Q9967